=== PATIENT | male | born 1950 | race Caucasian/White ===

== ENCOUNTER 2017-10-21 14:13 | Inpatient (IN) ==
[2017-10-21] MEDS ORDERED: Sodium Chlor 0.9% Inj 500 ML IV.SIG ONE ×2 (17:32→19:26)
[2017-10-21] MEDS ORDERED: Methocarbamol Inj 1,000 MG in Dextrose 5% in Water Inj 240 ML IV.SIG ONE ×2 (17:32)
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
[2017-10-21 19:17] LABS: Calcium 9.2 mg/dL (8.5-10.1); Magnesium 2.2 mg/dL (1.5-2.5); Potassium 4.1 meq/L (3.5-5.1)
[2017-10-21] MEDS ORDERED: Ketorolac Inj 30 MG/ML (IVP) Vial IV.PUSH ONE (19:26)
[2017-10-21] MEDS ORDERED: Famotidine PF Inj 20 MG/2 ML Vial IV.PUSH ONE (21:49)
[2017-10-21] MEDS ORDERED: MethylPREDNISolone Sod Succinate Inj 125 MG/2 ML Vial IV.PUSH ONE (21:49)
[2017-10-21 22:19] LABS: Baso # (Auto) 0.1 th/mm3 (0.0-0.2); Baso % (Auto) 0.6 % (0.0-2.0); Eos # (Auto) 0.1 th/mm3 (0.0-0.4); Eos % (Auto) 0.7 % (0.0-4.0); Hematocrit 38.8 % (39.0-51.0); Hemoglobin 13.3 gm/dL (13.0-17.0); Lymph # (Auto) 3.3 th/mm3 (1.0-4.8); Lymph % (Auto) 17.3 % (9.0-44.0); Mean Corpuscular HGB Conc 34.4 % (32.0-36.0); Mean Corpuscular Hemoglobin 32.1 pg (27.0-34.0); Mean Corpuscular Volume 93.4 fL (80.0-100.0); Mean Platelet Volume 8.1 fL (7.0-11.0); Mono # (Auto) 2.1 th/mm3 (0.0-0.9); Mono % (Auto) 10.7 % (0.0-8.0); Neut # (Auto) 13.7 th/mm3 (1.8-7.7); Neut % (Auto) 70.7 % (16.0-70.0); Platelet Count 415 th/mm3 (150-450); Red Blood Count 4.15 mil/mm3 (4.50-5.90); Red Cell Distribution Width 12.8 % (11.6-17.2); White Blood Count 19.4 th/mm3 (4.0-11.0)
[2017-10-21 22:25] LABS: Bacteria,Urine Moderate /hpf; Bilirubin,Urine Negative (Negative); Clarity,Urine Hazy (Clear); Color,Urine Yellow (Yellw/Straw); Glucose,Urine (UA) Negative (Negative); Hyaline Casts,Urine 9 /lpf (0-3); Leukocyte Esterase,Urine Negative (Negative); Mucus,Urine Few /lpf (Occasional); Nitrite,Urine Negative (Negative); Squamous Epithelial Cell,Urine 1 /hpf (0-5)
[2017-10-21] MEDS ORDERED: Aluminum/Magnesium/Simethacone Susp 30 ML UDC PO ONE (22:49)
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
[2017-10-22] MEDS ORDERED: Iohexol 300 MG/ML 50 ML Vial (for Rad Diag) IT ONE (00:47)
[2017-10-22] MEDS ORDERED: Temazepam 15 MG Capsule PO PRN (01:44)
[2017-10-22] MEDS ORDERED: Acetaminophen 325 MG Tablet PO PRN (01:44)
[2017-10-22] MEDS ORDERED: Bisacodyl 10 MG Supp RECTAL PRN (01:44)
[2017-10-22] MEDS: Sod Chloride 0.9% Inj 1,000 ML IV.CONT SCH ×2 (02:20→15:01)
--- NOTE | 2017-10-22 05:04 | P.HP ---
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 The patient is here with his advocate who states she has been in contact with Dr. Crump from rehab medicine who will see him in consultation upon admission. The patient saw his pain management doctor on Saturday where he was given a steroid injection and a Toradol shot. He states that this helped until Saturday when his spasticity and pain returned. He took baclofen at home and broke out in a rash of hives. He has a leukocytosis and UA concerning for urinary tract infection. He has an indwelling Al catheter. He denies any chest pain or shortness of breath. No abdominal pain. He is concerned about constipation. No nausea/vomiting/ diarrhea. No fever/chills. Review of Systems All other systems reviewed negative except as stated in HPI [facility] - History History Provided By: Patient - Medical History Medical History: Medical History (Last Updated 10/22/17 @ 03:30 by Genesis Kern RN) Abnormal stools Back pain Dislocation of t9/t10 thoracic vertebra, initial encounter GBS (Guillain [place] syndrome) HTN (hypertension) Knee cartilage, torn, right Scoliosis Sinus abscess - Surgical History Surgical History: Surgical History (Last Updated 10/22/17 @ 03:30 by Genesis Kern RN) H/O shoulder surgery History of lung surgery History of penile implant Hx of laminectomy - Tobacco History Second Hand Smoke Exposure: No Smoking Status: Former smoker Tobacco Type: Cigarettes - Alcohol History How Often Do You Have a Drink Containing Alcohol: Never - Substance Use History Substance History: Active Abuse, Past History - Substance Use Type Marijuana Status: Active Route Used: Inhalation Frequency: 1-2 "hits", nightly Reason for Use: Calm Down - Travel History Recent Travel in the [place] Within the Last 8 Weeks: No Recent Travel Out of the Country Within the Last 8 Weeks: No - Immunization History Tetanus Immunization: Unsure Hx Influenza Vaccine This Season: No Medications and Allergies Active Medications: Active Medications Acetaminophen (Tylenol) 650 mg PO Q4H PRN PRN Reason: Temp > 100.4 Hydrocodone Bitart/Acetaminophen ([place] 10/325) 1 tab PO Q6H PRN PRN Reason: Chronic Pain Last Admin: 10/22/17 03:44 Dose: 1 tab Al Hydroxide/Mg Hydroxide (Milk Of Magnesia Liq) 30 ml PO Q12H PRN PRN Reason: Mild Constipation Bisacodyl (Dulcolax Supp) 10 mg RECTAL DAILY PRN PRN Reason: SEVERE CONSITIPATION Cyclobenzaprine HCl (Flexeril) 10 mg PO Q8H PRN PRN Reason: muscle spasm Heparin Sodium (Porcine) (Heparin Inj) 5,000 units SQ Q8H [facility] Ceftriaxone Sodium 1,000 mg/ (Sodium Chloride) 100 mls @ 200 mls/hr IV.SIG Q24H [facility] Sodium Chloride (Ns Inj) 1,000 mls @ 100 mls/hr IV.CONT .Q10H [facility] Last Admin: 10/22/17 02:20 Dose: 100 mls/hr Lactulose (Lactulose Liq) 30 ml PO DAILY PRN PRN Reason: SEVERE CONSITIPATION Levothyroxine Sodium (Synthroid) 88 mcg PO DAILY@0600 [facility] Ondansetron HCl (Zofran Odt) 4 mg PO Q6H PRN PRN Reason: NAUSEA OR VOMITING Valsartan- Hydrochlorothiazide [Diovan Hct] 160/12. 5 1 each PO DAILY [facility] Senna/Docusate Sodium (Libertad-Colace) 1 tab PO BID [facility] Sennosides (Senokot) 17.2 mg PO Q12H PRN PRN Reason: Moderate Constipation Sodium Chloride (Ns Flush) 2 ml IV.FLUSH PRN PRN PRN Reason: FLUSH AFTER USING IV ACCESS Temazepam (Restoril) 15 mg PO HS PRN PRN Reason: INSOMNIA Trazodone HCl (Desyrel) 200 mg PO HS [facility] Allergies Allergy/AdvReac Type Severity Reaction Status Date / Time sulfamethoxazole Allergy Hives Verified 10/21/17 17:32 [From Bactrim] trimethoprim [From Bactrim] Allergy Hives Verified 10/21/17 17:32 Home Medications Medication Instructions Recorded Confirmed Type ascorbic acid (vitamin C) [Vitamin 1 g PO Q6H 10/22/17 10/22/17 History C] calcium carbonate [Calcium 600] 600 mg PO BID 10/22/17 10/22/17 History cholecalciferol (vitamin D3) 2,000 unit PO DAILY 10/22/17 10/22/17 History [Vitamin D3] hydrocodone-acetaminophen 1 tab PO Q6H PRN 10/22/17 10/22/17 History levothyroxine 88 mcg PO DAILY 10/22/17 10/22/17 History linaclotide [Linzess] 290 mcg PO DAILY 10/22/17 10/22/17 History methenamine hippurate 1 g PO Q12H 10/22/17 10/22/17 History polyethylene glycol 3350 17 g PO BID 10/22/17 10/22/17 History trazodone 200 mg PO DAILY 10/22/17 10/22/17 History valsartan-hydrochlorothiazide 1 tab PO DAILY 10/22/17 10/22/17 History [Diovan HCT] Exam Vital signs: Vital Signs 10/21/17 14:25 10/21/17 16:22 10/21/17 23:11 Temperature 98 F Pulse Rate 97 H Respiratory Rate 17 8 L Blood Pressure 183/98 H 166/101 H Pulse Oximetry 97 Intake & Output 10/21/17 10/21/17 10/22/17 06:59 18:59 06:59 Weight 90.718 kg Narrative: Gen.: No acute distress Head: Normocephalic. Atraumatic. EENT: Pupils equal round and reactive to light. Nose without drainage. Airway intact. Throat without injection. Cardiovascular: Regular rate and rhythm. No murmurs, rubs or gallops. Respiratory: Lungs clear to auscultation bilaterally. No wheezes or rhonchi. Abdomen: Soft, nontender, nondistended. No peritoneal signs. Musculoskeletal: No edema. Skin: No obvious rashes or erythema. Neuro: Cranial nerves II through XII grossly intact. Normal speech Psych: Appropriate mood and affect Results - Labs CBC & Chem 7: 10/21/17 22:00 10/21/17 18:04 Labs: Laboratory Results - last 24 hr 10/21/17 10/21/17 10/21/17 18:04 21:45 22:00 WBC 19.4 H RBC 4.15 L Hgb 13.3 Hct 38.8 L MCV 93.4 MCH 32.1 MCHC 34.4 RDW 12.8 Plt Count 415 MPV 8.1 Neut % (Auto) 70.7 H Lymph % (Auto) 17.3 [place] % (Auto) 10.7 H Eos % (Auto) 0.7 Baso % (Auto) 0.6 Neut # (Auto) 13.7 H Lymph # (Auto) 3.3 [place] # (Auto) 2.1 H Eos # (Auto) 0.1 Baso # (Auto) 0.1 WBC Differential . Differential Comment Auto diff final Sodium 130 L Potassium 4.1 Chloride 95 L Carbon Dioxide 25.0 Anion Gap 10 BUN 12 Creatinine 1.08 Estimated GFR 68 L Random Glucose 98 Calcium 9.2 Magnesium 2.2 Urine Color Yellow Urine Clarity Hazy H Urine pH 8.0 Ur Specific [place] 1.010 Urine Protein Negative Urine Glucose (UA) Negative Urine Ketones Trace Urine Occult Blood Negative Urine Nitrate Negative Urine Bilirubin Negative Urine Urobilinogen Less than 2 Ur Leukocyte Esterase Negative Urine RBC Less than 1 Urine WBC 1 Ur Squamous Epith Cells 1 Urine Bacteria Moderate H Hyaline Casts 9 Urine Mucus Few H Micro UA Comment Cath-culture ind Urine Culture Comments Cath-cult indicated - Imaging Impressions Abdomen X-Ray 10/21/17 21:49 CONCLUSION: 1. Minimal air distention of small and large bowel in a nonobstructive pattern. No findings of stool retention/constipation. 2. S-shaped scoliosis of the thoracolumbar spine. 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 Caprini VTE Risk Assessment Caprini VTE Risk Assessment: Moderate/High Risk (score >= 2) Caprini Risk Assessment Model: Point Value = 1 Point Value = 2 Point Value = 3 Point Value = 5 Age 41-60 Minor surgery BMI > 25 kg/m2 Swollen legs Varicose veins or History of unexplained or recurrent spontaneous Oral contraceptives or hormone replacement Sepsis (< 1 month) Serious lung disease, including pneumonia (< 1 month) Abnormal pulmonary function Acute myocardial infarction Congestive heart failure (< 1 month) History of inflammatory bowel disease Medical patient at bed rest Age 61-74 Arthroscopic surgery Major open surgery (> 45 min) Laparoscopic surgery (> 45 min) Malignancy Confined to bed (> 72 hours) Immobilizing plaster cast Central venous access Age >= 75 History of VTE Family history of VTE Factor V Leiden Prothrombin [id number] Lupus anticoagulant Anticardiolipin antibodies Elevated serum homocysteine Heparin-induced thrombocytopenia Other congenital or acquired thrombophilia Stroke (< 1 month) Elective arthroplasty Hip, pelvis, or leg fracture Acute spinal cord injury (< 1 month) Prophylaxis Regimen: Total Risk Factor Score Risk Level Prophylaxis Regimen 0-1 Low Early ambulation 2 Moderate Order ONE of the following: *Sequential Compression Device (SCD) *Heparin 5000 units SQ BID 3-4 Higher Order ONE of the following medications: *Heparin 5000 units SQ TID *Enoxaparin/Lovenox 40 mg SQ daily (WT < 150 kg, CrCl > 30 mL/min) *Enoxaparin/Lovenox 30 mg SQ daily (WT < 150 kg, CrCl > 10-29 mL/min) *Enoxaparin/Lovenox 30 mg SQ BID (WT < 150 kg, CrCl > 30 mL/min) AND/OR *Sequential Compression Device (SCD) 5 or more Highest Order ONE of the following medications: *Heparin 5000 units SQ TID (Preferred with Epidurals) *Enoxaparin/Lovenox 40 mg SQ daily (WT < 150 kg, CrCl > 30 mL/min) *Enoxaparin/Lovenox 30 mg SQ daily (WT < 150 kg, CrCl > 10-29 mL/min) *Enoxaparin/Lovenox 30 mg SQ BID (WT < 150 kg, CrCl > 30 mL/min) AND *Sequential Compression Device (SCD) Assessment and Plan - Plan Assessment/plan: 1. Urosepsis UA consistent with urinary tract infection Patient with tachycardia and leukocytosis May be colonized as he has an indwelling Al catheter and leukocytosis may be secondary to steroid injection on Saturday Urine culture pending Rocephin until culture results 2. Back pain/spasticity Continue home [place] Flexeril Status post Toradol in the ED Rehab medicine consulted, appreciate recommendations Physical therapy consulted 3. Hives Resolved with Benadryl and IV steroids Monitor 4. Hypertension Continue home medications 5. Hypothyroidism Continue home Synthroid FEN Regular diet Electrolytes: Monitor and replete as needed NS at 100 cc/hour Heparin
[2017-10-22] MEDS: Heparin - SQ 10,000 UNITS/ML Vial SQ SCH ×3 (06:14→17:56)
--- NOTE | 2017-10-22 08:56 | P.CONREH ---
History of Present Illness Primary Care Provider: No Primary Care Physician PMF - History History Provided By: Patient - Medical History Medical History: Medical History (Last Updated 10/22/17 @ 03:30 by Genesis Kern RN) Abnormal stools Back pain Dislocation of t9/t10 thoracic vertebra, initial encounter GBS (Guillain [place] syndrome) HTN (hypertension) Knee cartilage, torn, right Scoliosis Sinus abscess - Surgical History Surgical History: Surgical History (Last Updated 10/22/17 @ 03:30 by Genesis Kern RN) H/O shoulder surgery History of lung surgery History of penile implant Hx of laminectomy - Tobacco History Second Hand Smoke Exposure: No Smoking Status: Former smoker Tobacco Type: Cigarettes - Alcohol History How Often Do You Have a Drink Containing Alcohol: Never - Substance Use History Substance History: Active Abuse, Past History - Substance Use Type Marijuana Status: Active Route Used: Inhalation Frequency: 1-2 "hits", nightly Reason for Use: Calm Down - Travel History Recent Travel in the [place] Within the Last 8 Weeks: No Recent Travel Out of the Country Within the Last 8 Weeks: No - Immunization History Tetanus Immunization: Unsure Hx Influenza Vaccine This Season: No Medications and Allergies Active Medications: Active Medications Acetaminophen (Tylenol) 650 mg PO Q4H PRN PRN Reason: Temp > 100.4 Hydrocodone Bitart/Acetaminophen ([place] 10/325) 1 tab PO Q6H PRN PRN Reason: Chronic Pain Last Admin: 10/22/17 03:44 Dose: 1 tab Al Hydroxide/Mg Hydroxide (Milk Of Magnmaggie Liq) 30 ml PO Q12H PRN PRN Reason: Mild Constipation Bisacodyl (Dulcolax Supp) 10 mg RECTAL DAILY PRN PRN Reason: SEVERE CONSITIPATION Cyclobenzaprine HCl (Flexeril) 10 mg PO Q8H PRN PRN Reason: muscle spasm Heparin Sodium (Porcine) (Heparin Inj) 5,000 units SQ Q8H [facility] Last Admin: 10/22/17 06:14 Dose: Not Given Ceftriaxone Sodium 1,000 mg/ (Sodium Chloride) 100 mls @ 200 mls/hr IV.SIG Q24H [facility] Sodium Chloride (Ns Inj) 1,000 mls @ 100 mls/hr IV.CONT .Q10H [facility] Last Admin: 10/22/17 02:20 Dose: 100 mls/hr Lactulose (Lactulose Liq) 30 ml PO DAILY PRN PRN Reason: SEVERE CONSITIPATION Levothyroxine Sodium (Synthroid) 88 mcg PO DAILY@0600 [facility] Ondansetron HCl (Zofran Odt) 4 mg PO Q6H PRN PRN Reason: NAUSEA OR VOMITING Valsartan- Hydrochlorothiazide [Diovan Hct] 160/12. 5 1 each PO DAILY [facility] Senna/Docusate Sodium (Libertad-Colace) 1 tab PO BID [facility] Sennosides (Senokot) 17.2 mg PO Q12H PRN PRN Reason: Moderate Constipation Sodium Chloride (Ns Flush) 2 ml IV.FLUSH PRN PRN PRN Reason: FLUSH AFTER USING IV ACCESS Temazepam (Restoril) 15 mg PO HS PRN PRN Reason: INSOMNIA Trazodone HCl (Desyrel) 200 mg PO HS [facility] Allergies Allergy/AdvReac Type Severity Reaction Status Date / Time sulfamethoxazole Allergy Hives Verified 10/21/17 17:32 [From Bactrim] trimethoprim [From Bactrim] Allergy Hives Verified 10/21/17 17:32 Home Medications Medication Instructions Recorded Confirmed Type ascorbic acid (vitamin C) [Vitamin 1 g PO Q6H 10/22/17 10/22/17 History C] calcium carbonate [Calcium 600] 600 mg PO BID 10/22/17 10/22/17 History cholecalciferol (vitamin D3) 2,000 unit PO DAILY 10/22/17 10/22/17 History [Vitamin D3] hydrocodone-acetaminophen 1 tab PO Q6H PRN 10/22/17 10/22/17 History levothyroxine 88 mcg PO DAILY 10/22/17 10/22/17 History linaclotide [Linzess] 290 mcg PO DAILY 10/22/17 10/22/17 History methenamine hippurate 1 g PO Q12H 10/22/17 10/22/17 History polyethylene glycol 3350 17 g PO BID 10/22/17 10/22/17 History trazodone 200 mg PO DAILY 10/22/17 10/22/17 History valsartan-hydrochlorothiazide 1 tab PO DAILY 10/22/17 10/22/17 History [Diovan HCT] Exam - Physical Examination Vital Signs / I&O: Vital Signs 10/21/17 14:25 10/21/17 16:22 10/21/17 23:11 Temperature 98 F Pulse Rate 97 H Respiratory Rate 17 8 L Blood Pressure 183/98 H 166/101 H Pulse Oximetry 97 10/22/17 04:00 Temperature 98.7 F Pulse Rate 72 Respiratory Rate 17 Blood Pressure 166/75 H Pulse Oximetry 94 L Intake & Output 10/21/17 10/22/17 10/22/17 18:59 06:59 18:59 Output Total 750 / 750 Balance -750 / -750 Weight 200 lb Output: Urine 750 / 750 Other: Date of Last Bowel Movement 10/22/17 # Bowel Movements 1 Intake & Output 10/20/17 10/21/17 10/22/17 10/23/17 06:59 06:59 06:59 06:59 Output Total 750 / 750 Balance -750 / -750 Weight 200 lb Date of Last Bowel Movement: 10/22/17 Results - Labs CBC & Chem 7: 10/21/17 22:00 10/21/17 18:04 Labs: Laboratory Results - last 24 hr 10/21/17 10/21/17 10/21/17 18:04 21:45 22:00 WBC 19.4 H RBC 4.15 L Hgb 13.3 Hct 38.8 L MCV 93.4 MCH 32.1 MCHC 34.4 RDW 12.8 Plt Count 415 MPV 8.1 Neut % (Auto) 70.7 H Lymph % (Auto) 17.3 [place] % (Auto) 10.7 H Eos % (Auto) 0.7 Baso % (Auto) 0.6 Neut # (Auto) 13.7 H Lymph # (Auto) 3.3 [place] # (Auto) 2.1 H Eos # (Auto) 0.1 Baso # (Auto) 0.1 WBC Differential . Differential Comment Auto diff final Sodium 130 L Potassium 4.1 Chloride 95 L Carbon Dioxide 25.0 Anion Gap 10 BUN 12 Creatinine 1.08 Estimated GFR 68 L Random Glucose 98 Calcium 9.2 Magnesium 2.2 Urine Color Yellow Urine Clarity Hazy H Urine pH 8.0 Ur Specific [place] 1.010 Urine Protein Negative Urine Glucose (UA) Negative Urine Ketones Trace Urine Occult Blood Negative Urine Nitrate Negative Urine Bilirubin Negative Urine Urobilinogen Less than 2 Ur Leukocyte Esterase Negative Urine RBC Less than 1 Urine WBC 1 Ur Squamous Epith Cells 1 Urine Bacteria Moderate H Hyaline Casts 9 Urine Mucus Few H Micro UA Comment Cath-culture ind Urine Culture Comments Cath-cult indicated - Imaging Impressions Abdomen X-Ray 10/21/17 21:49 CONCLUSION: 1. Minimal air distention of small and large bowel in a nonobstructive pattern. No findings of stool retention/constipation. 2. S-shaped scoliosis of the thoracolumbar spine. 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 Assessment and Plan (1) Paraplegia Status: Acute Code(s): G82.20 - Paraplegia, unspecified (2) Spinal cord injury Status: Acute (3) Muscle spasm Status: Acute Code(s): M62.838 - Other muscle spasm (4) Hyponatremia Status: Acute Code(s): E87.1 - Hypo-osmolality and hyponatremia (5) SIRS (systemic inflammatory response syndrome) Status: Acute Code(s): R65.10 - Systemic inflammatory response syndrome (SIRS ) of non-infectious origin without acute organ dysfunction - Plan Mr. Street is a long time spinal cord injury with chronic back pain following with pain management presenting with worsening back pain and spams in the legs. 1. Will order a CT scan of the L spine since no imaging has been done in a few years and his pain is significant. Agree with hydrocodone for pain. Oxycodone x 1 to help with pain. 2. Agree with antibiotics for possible urosepsis. Leukocytosis could be from recent steroids vs infection 3. Spasticity - he has tried baclofen and valium in the past with no improvement. Will trial zanaflex. Will give one dose of valium to see if able to do the CT scan of the L spine, spasm are a barrier. 4. Continue with bowel and bladder program. 5. High BP - unsure if this is autonomic disreflexia due to hx of sweating and pain vs HTN at baseline or due to pain. Thanks for the consultation, will continue to follow while in the hospital.
[2017-10-22] MEDS ORDERED: VALSARTAN HYDROCHLOROTHIAZIDE PO SCH (09:00)
--- NOTE | 2017-10-22 09:32 | P.PN ---
Subjective Interval history: Follow up for back pain and spasticity. The patient reports continued diffuse low back pain with spasms into his bilateral hips, unchanged compared to yesterday. He denies any fevers/chills. He uses a condom catheter, reports good urine output. He has no other medical complaints at this time. Physical Exam Vital signs: Vital Signs 10/21/17 14:25 10/21/17 16:22 10/21/17 23:11 Temperature 98 F Pulse Rate 97 H Respiratory Rate 17 8 L Blood Pressure 183/98 H 166/101 H Pulse Oximetry 97 10/22/17 04:00 10/22/17 08:00 Temperature 98.7 F 97.6 F Pulse Rate 72 83 Respiratory Rate 17 16 Blood Pressure 166/75 H 173/84 H Pulse Oximetry 94 L 97 Intake & Output 10/21/17 10/22/17 10/22/17 18:59 06:59 18:59 Output Total 750 / 750 Balance -750 / -750 Weight 90.718 kg Output: Urine 750 / 750 Other: Date of Last Bowel Movement 10/22/17 10/22/17 # Bowel Movements 1 Narrative: GENERAL: Well-nourished, well-developed male patient in [facility]. SKIN: Warm and dry. No rash. HEENT: Normocephalic. Atraumatic. Pupils equal and round. Mucous membranes pink and moist. CARDIOVASCULAR: Regular rate and rhythm. No murmur appreciated. RESPIRATORY: No accessory muscle use. Clear to auscultation. Breath sounds equal bilaterally. GASTROINTESTINAL: Abdomen soft, non-tender, nondistended. Normoactive bowel sounds x4. MUSCULOSKELETAL: No obvious deformities. Extremities without clubbing, cyanosis , or edema. NEUROLOGICAL: Awake and alert. 2/5 lower extremity strength. Normal speech. PSYCHIATRIC: Appropriate mood and affect; insight and judgment normal. Results - Labs CBC & Chem 7: 10/21/17 22:00 10/21/17 18:04 Laboratory Results - last 24 hr 10/21/17 10/21/17 10/21/17 18:04 21:45 22:00 WBC 19.4 H RBC 4.15 L Hgb 13.3 Hct 38.8 L MCV 93.4 MCH 32.1 MCHC 34.4 RDW 12.8 Plt Count 415 MPV 8.1 Neut % (Auto) 70.7 H Lymph % (Auto) 17.3 [place] % (Auto) 10.7 H Eos % (Auto) 0.7 Baso % (Auto) 0.6 Neut # (Auto) 13.7 H Lymph # (Auto) 3.3 [place] # (Auto) 2.1 H Eos # (Auto) 0.1 Baso # (Auto) 0.1 WBC Differential . Differential Comment Auto diff final Sodium 130 L Potassium 4.1 Chloride 95 L Carbon Dioxide 25.0 Anion Gap 10 BUN 12 Creatinine 1.08 Estimated GFR 68 L Random Glucose 98 Calcium 9.2 Magnesium 2.2 Urine Color Yellow Urine Clarity Hazy H Urine pH 8.0 Ur Specific [place] 1.010 Urine Protein Negative Urine Glucose (UA) Negative Urine Ketones Trace Urine Occult Blood Negative Urine Nitrate Negative Urine Bilirubin Negative Urine Urobilinogen Less than 2 Ur Leukocyte Esterase Negative Urine RBC Less than 1 Urine WBC 1 Ur Squamous Epith Cells 1 Urine Bacteria Moderate H Hyaline Casts 9 Urine Mucus Few H Micro UA Comment Cath-culture ind Urine Culture Comments Cath-cult indicated - Imaging Impressions Abdomen X-Ray 10/21/17 21:49 CONCLUSION: 1. Minimal air distention of small and large bowel in a nonobstructive pattern. No findings of stool retention/constipation. 2. S-shaped scoliosis of the thoracolumbar spine. 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 Sepsis with UTI: UA consistent with urinary tract infection, meets sepsis criteria with tachycardia HR 97, and leukocytosis WBC 19K (although recently received steroid injection last Wednesday 10/18). -Monitor urine culture -Continue on IV rocephin for now Back pain/spasticity: acute on chronic -Continued home [place] -Rehab medicine consulted, appreciate recommendations -Dr. Crump added zanaflex 4mg po q8h -Physical therapy consulted -Lumbar spine CT ordered Hives: after taking Baclofen -Resolved with Benadryl and IV steroids Hypertension: chronic -Continue patient's diovan -Monitor BP, adjust antihypertensives as needed Hypothyroidism: chronic -Continue home Synthroid DVT Prophylaxis: Heparin sq Discharge Planning: Discharge pending further clinical improvement, lumbar CT, clearance from rehab medicine.
[2017-10-22] MEDS ORDERED: diazePAM 5 MG Tablet PO ONE (13:48)
[2017-10-22] MEDS: Senna/Docusate Sodium 8.6/50 MG Tablet PO SCH ×2 (15:00→22:09)
[2017-10-22] MEDS: Levothyroxine 88 MCG Tablet PO SCH (19:10)
[2017-10-22] MEDS: traZODone 100 MG Tablet PO SCH (22:09)
[2017-10-23] MEDS: Sod Chloride 0.9% Inj 1,000 ML IV.CONT SCH ×4 (01:02→20:10)
[2017-10-23] MEDS: Heparin - SQ 10,000 UNITS/ML Vial SQ SCH ×3 (01:02→18:28)
--- NOTE | 2017-10-23 01:11 | CT ---
EXAM DATE: 10/23/2017 12:59 AM EDT AGE/SEX: 67 years / Male INDICATIONS: Increased back pain and spasms. CLINICAL DATA: This is the patient's initial encounter. Patient reports that signs and symptoms have been present for 1 day and indicates a pain score of 8/10. MEDICAL/SURGICAL HISTORY: Hypertension. Paraplegia. . Laminectomy. RADIATION DOSE: 33.34 CTDI (mGy) COMPARISON: DEL, CT ABDOMEN AND PELVIS W AND W/O CONTRAST, 08/31/2014. . TECHNIQUE: Contiguous axial images were acquired with a multirow detector CT scanner without contras t. Multiplanar reconstructions in the sagittal and coronal plane were also performed. Using automate d exposure control and adjustment of the mA and/or kV according to patient size, radiation dose was k ept as low as reasonably achievable to obtain optimal diagnostic quality images. DICOM format image data is available electronically for review and comparison. FINDINGS: Sagittal and coronal reconstruction show a significant levoscoliosis of the lumbar spine with associa jossy degenerative changes. Vacuum disc phenomenon at L4-5. Marginal spurs from L1 to inferiorly, most severe at L3-4 and L4-5. Vertebral body heights are maintained without fracture. Urinary bladder appe ars to be distended with possibly some retention. T12-L1: Motion artifact. Spinal canal and neural foramina are grossly patent L1-L2: Motion artifact. Spinal canal and neural foramina are grossly patent L2-L3: Mild, diffuse disc bulge with some facet hypertrophy results in mild central spinal stenosis. Both neural foramina are adequate L3-L4: Diffuse disc bulge with facet hypertrophy. Mild spinal stenosis. Spinal canal and neural fora tressa are adequate L4-L5: Broad-based disc bulges most prominent right posterior and lateral. Bilateral facet hypertrop hy There is narrowing of the right neural foramina with probable compromise of the right L4 nerve aj t L5-S1: Vacuum disc phenomenon with facet hypertrophy. Some encroachment on the spinal canal but the spinal canal and neural foramina are adequate CONCLUSION: 1. Levoscoliosis of the lumbar spine with associated multilevel degenerative disc disease. 2. Some degree of central spinal stenosis from L2-3, L3-4 and L5-S1 due to diffuse disc bulge and fa cet hypertrophy. 3. Foraminal narrowing rightward at L4-5 due to a combination of disc and facet hypertrophy may comp romise the right L4 nerve root. 4. No acute fracture. Electronically signed by: Manny Szymanski MD 10/23/2017 1:09 AM EDT
[2017-10-23] MEDS: Levothyroxine 88 MCG Tablet PO SCH (05:58)
[2017-10-23 08:50] LABS: Baso # (Auto) 0.1 th/mm3 (0.0-0.2); Baso % (Auto) 0.9 % (0.0-2.0); Eos # (Auto) 0.1 th/mm3 (0.0-0.4); Hematocrit 28.9 % (39.0-51.0); Lymph # (Auto) 2.6 th/mm3 (1.0-4.8); Lymph % (Auto) 39.8 % (9.0-44.0); Mean Corpuscular HGB Conc 34.6 % (32.0-36.0); Mean Corpuscular Volume 95.2 fL (80.0-100.0); Mean Platelet Volume 8.1 fL (7.0-11.0); Mono # (Auto) 0.8 th/mm3 (0.0-0.9); Mono % (Auto) 11.9 % (0.0-8.0); Neut % (Auto) 45.4 % (16.0-70.0); Platelet Count 294 th/mm3 (150-450); Red Blood Count 3.04 mil/mm3 (4.50-5.90); Red Cell Distribution Width 12.9 % (11.6-17.2); White Blood Count 6.7 th/mm3 (4.0-11.0)
[2017-10-23 09:18] LABS: Anion Gap 7 meq/L (5-15); Blood Urea Nitrogen 16 mg/dL (7-18); Calcium 7.7 mg/dL (8.5-10.1); Carbon Dioxide 25.3 meq/L (21.0-32.0); Chloride 108 meq/L (98-107); Glomerular Filtration Rate Greater Than 89 mL/min (>89); Glucose,Random 89 mg/dL (74-106); Potassium 3.8 meq/L (3.5-5.1); Sodium 140 meq/L (136-145)
[2017-10-23] MEDS: Senna/Docusate Sodium 8.6/50 MG Tablet PO SCH ×2 (10:18→20:07)
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
[2017-10-23] MEDS ORDERED: predniSONE 20 MG Tablet PO ONE (12:45)
[2017-10-23] MEDS: Famotidine 20 MG Tablet PO SCH ×2 (13:31→20:08)
[2017-10-23] MEDS: traZODone 100 MG Tablet PO SCH (20:07)
[2017-10-24] MEDS: Heparin - SQ 10,000 UNITS/ML Vial SQ SCH ×2 (00:01→08:28)
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
[2017-10-24] MEDS: Sod Chloride 0.9% Inj 1,000 ML IV.CONT SCH ×2 (06:11→16:34)
[2017-10-24] MEDS: Levothyroxine 88 MCG Tablet PO SCH (06:12)
[2017-10-24] MEDS: Famotidine 20 MG Tablet PO SCH ×2 (08:28→20:41)
[2017-10-24] MEDS: Senna/Docusate Sodium 8.6/50 MG Tablet PO SCH ×2 (08:28→20:41)
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
--- NOTE | 2017-10-24 16:55 | P.PNNS ---
Subjective Interval history: 10/24: reports this morning was doing well, pain and cramps improved. later today however when he was on the commode aggravated his back somehow and has pain and leg spasms returned. <Yeny Boykin - Last Filed: 10/24/17 16:49> Physical Exam Vital signs: Vital Signs 10/23/17 23:33 10/24/17 04:00 10/24/17 08:00 Temperature 97.9 F 97.6 F 97.7 F Pulse Rate 63 60 57 L Respiratory Rate 16 16 16 Blood Pressure 140/69 165/70 H 162/77 H Pulse Oximetry 96 94 L 98 10/24/17 12:00 10/24/17 15:44 Temperature 97.7 F Pulse Rate 67 Respiratory Rate 18 Blood Pressure 186/87 H 145/89 H Pulse Oximetry 98 Intake & Output 10/23/17 10/24/17 10/24/17 18:59 06:59 18:59 Intake Total 2250 / 2250 3000 / 3000 1000 / 1000 Output Total 1700 / 1700 3200 / 3200 Balance 550 / 550 -200 / -200 1000 / 1000 Intake: IV 2250 / 2250 2000 / 2000 1000 / 1000 NS Inj 1,000 ML @ 100 mls/hr IV 1000 / 1000 2000 / 2000 1000 / 1000 .CONT .Q10H [facility] Rx#:[id number] Oral 1000 / 1000 Output: Urine 1700 / 1700 3200 / 3200 Other: Date of Last Bowel Movement 10/23/17 10/23/17 10/24/17 # Bowel Movements 1 2 Narrative: General: Well nourished. Appears mildly uncomfortable due to spams in legs during examination. HEENT: Normocephalic, atraumatic. Normal conjunctiva. No nasal drainage. Gross hearing intact bilaterally. No ear drainage. Neck: No masses, no JVD. Trachea midline. Good range of motion without pain Neuro: Awake, alert and oriented to person, place, and time. Speech is clear and fluent. Can follow single and multi-step commands without apraxia. Cranial nerve examination: pupils to be equal, round, and reactive to light. Extra-ocular movements are intact with normal convergence. Facial motor function are normal and symmetrical. Gross hearing is intact, bilaterally, to finger rub. The uvula is midline and elevates symmetrically with the soft palate. Sternocleidomastoid and deltoid muscles have normal and symmetrical strength. Other cranial nerves are intact. Deep tendon reflexes are 1+ patellar. Bilateral Babinski response. Extremities: Mild increased tone with positive fasciculation of thigh. Atrophy of legs and right hand interosseous muscles. 4/5 right upper extremity. 5/5 left upper extremity. In the lower extremities, strength is 4/ 5 legs. Moderate thoracic kyphosis. Cerebellar: Intact finger to nose bilaterally Lungs: Nonlabored breathing on room air, no wheezing,rhonchi or crackles. No accessory muscle use. Heart: Regular rate and rhythm Abdomen: Soft, nontender. Positive bowel sounds Skin: Warm and dry, no cyanosis. Diffuse wheal and hives throughout. <Yeny Boykin - Last Filed: 10/24/17 16:49> Vital signs: Vital Signs 10/27/17 20:00 10/27/17 23:23 10/28/17 04:00 Temperature 97.6 F 98.8 F 98.0 F Pulse Rate 70 63 64 Respiratory Rate 16 16 15 Blood Pressure 133/60 155/71 H 132/68 Pulse Oximetry 94 L 96 97 10/28/17 11:58 10/28/17 15:44 Temperature 97.7 F 97.8 F Pulse Rate 67 60 Respiratory Rate 16 16 Blood Pressure 132/66 167/77 H Pulse Oximetry 98 99 Intake & Output 10/27/17 10/28/17 10/28/17 18:59 06:59 18:59 Intake Total 1000 / 1000 Output Total 1999 Balance -1999 / -1999 1000 / 1000 Intake: IV 1000 / 1000 Output: Urine 1999 Other: Date of Last Bowel Movement 10/26/17 10/26/17 Narrative: General: Mr Street is well nourished. No apparent distress, laying flat in bed. HEENT: Normocephalic, atraumatic. Normal conjunctiva. No nasal drainage. Gross hearing intact bilaterally. No ear drainage. Neck: No masses, no JVD. Trachea midline. Good range of motion without pain Neuro: Awake, alert and oriented to person, place, and time. Speech is clear and fluent. Can follow single and multi-step commands without apraxia. Cranial nerve examination: pupils equal, round, and reactive to light. Extra- ocular movements are intact with normal convergence. Facial motor function are normal and symmetrical. Other cranial nerves are intact. Deep tendon reflexes are 1+ patellar. Bilateral Babinski response. Extremities: Mild increased tone with positive fasciculation of thigh. Atrophy of legs and right hand interosseous muscles. 4/5 right upper extremity. 5/5 left upper extremity. In the lower extremities, strength is 4/ 5 legs. Moderate thoracic kyphosis. Lungs: Nonlabored breathing on room air, no wheezing,rhonchi or crackles. No accessory muscle use. Heart: Regular rate and rhythm Abdomen: Soft, nontender. Positive bowel sounds Skin: Warm and dry, no cyanosis. <Hector Mir - Last Filed: 10/28/17 17:56> Assessment and Plan - Plan CT Thoracic spine unremarkable Dr. Mir recommends CT Myelogram C, T, L spine hold heparin increase Flexeril to q6hrs as it has helped <Yeny Boykin - Last Filed: 10/24/17 16:49> - Plan Neuro: Continue neuro checks. I recommend myelography and post myelogram CT of cervical, thoracic, and lumbar spine. I will defer further recommendations to upon completion of his workup Spasticity - he has tried baclofen and valium in the past with no improvement. Will trial zanaflex. Trial of valium Continue with bowel and bladder program. 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 Daily PT and OT Renal: Continue to monitor closely urine output, BUN and creatinine Endocrine: Continue to Monitor serial Acu checks and SSI as needed in detail ID antibiotics for possible urosepsis. Leukocytosis could be from recent steroids vs infection Continue Protonix for stress ulcer prophylaxis Continue Jelani hose and SCD's for DVT prophylaxis Further recommendations will be provided depending on the patient's clinical evaluation and follow up studies. The exam, history, and the medical decision-making described in the above note were completed with the assistance of the mid-level provider. I reviewed and agree with the findings presented. I attest that I had a [id number] encounter with the patient on the same day, and personally performed and documented my assessment and findings in the medical record. <Hector Mir - Last Filed: 10/28/17 17:56>
[2017-10-24] MEDS: traZODone 100 MG Tablet PO SCH (20:41)
[2017-10-25] MEDS: Sod Chloride 0.9% Inj 1,000 ML IV.CONT SCH ×2 (02:35→14:55)
[2017-10-25] MEDS: Levothyroxine 88 MCG Tablet PO SCH (06:05)
[2017-10-25 08:00] LABS: Prothrombin Time 10.3 sec (9.8-11.6)
[2017-10-25] MEDS: Famotidine 20 MG Tablet PO SCH ×2 (08:37→20:53)
[2017-10-25] MEDS: Senna/Docusate Sodium 8.6/50 MG Tablet PO SCH ×2 (08:37→20:55)
[2017-10-25] MEDS ORDERED: hydroCHLOROthiazide 25 MG Tablet PO SCH (14:00)
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
[2017-10-25] MEDS ORDERED: Methenamine Mandelate 500 MG Tablet PO SCH (14:30)
[2017-10-25] MEDS: Ascorbic Acid 500 MG Tablet PO SCH (15:40)
[2017-10-25] MEDS: Calcium Carbonate 500 MG Tablet PO SCH (15:42)
[2017-10-25] MEDS: Polyethylene Glycol 3350 17 GM Packet PO SCH (15:47)
--- NOTE | 2017-10-25 17:01 | P.PNREH ---
Subjective Interval history: Patient evaluated today, continues with significant pain and spasm. Review of Systems Constitutional: Denies fatigue Eyes: Denies blurry vision Ears, Nose, Mouth, and Throat: Denies abnormal hearing Cardiovascular: Denies chest pain Respiratory: Denies cough Gastrointestinal: Denies abdominal pain Genitourinary: Reports other (neurogenic bladder) Musculoskeletal: Reports abnormal walking, Reports back pain, Reports decreased muscle mass, Reports muscle weakness, Reports numbness, Reports stiffness Neurologic: Reports abnormal walking, Reports tingling/numbness/burning sensations Exam - Physical Examination Vital Signs / I&O: Vital Signs 10/24/17 20:00 10/24/17 23:38 10/25/17 04:00 Temperature 97.6 F 98.0 F 97.9 F Pulse Rate 71 68 57 L Respiratory Rate 16 17 16 Blood Pressure 162/74 H 139/66 174/88 H Pulse Oximetry 98 96 97 10/25/17 09:10 Temperature 98.2 F Pulse Rate 70 Respiratory Rate 20 Blood Pressure 160/80 H Pulse Oximetry Intake & Output 10/24/17 10/25/17 10/25/17 18:59 06:59 18:59 Intake Total 1000 / 1000 1000 / 1000 1500 / 1500 Balance 1000 / 1000 1000 / 1000 1500 / 1500 Intake: IV 1000 / 1000 1000 / 1000 1000 / 1000 NS Inj 1,000 ML @ 100 mls/hr IV 1000 / 1000 1000 / 1000 1000 / 1000 .CONT .Q10H [facility] Rx#:[id number] Oral 500 / 500 Other: Date of Last Bowel Movement 10/24/17 10/23/17 Intake & Output 10/23/17 10/24/17 10/25/17 10/26/17 06:59 06:59 06:59 06:59 Intake Total 4650 / 4650 5250 / 5250 2000 / 2000 1500 / 1500 Output Total 3250 / 3250 4900 / 4900 Balance 1400 / 1400 350 / 350 2000 / 2000 1500 / 1500 General: Moderate distress (due to pain) HEENT: NC, AT Respiratory: Lungs CTA, Non-labored respirations Gastrointestinal: Positive bowel sounds, Non-distended Date of Last Bowel Movement: 10/23/17 Cardiovascular: Normal rate Skin: No rash Musculoskeletal: Swelling (None noted) Psychiatric: Cooperative - Neurologic Orientation: oriented to: Self, Place, Time Motor: Right Upper Extremity (5/5), Left Upper Extremity (5/5) Spasticity: BLE significant Objective Laboratory Results - last 24 hr 10/25/17 06:57 PT 10.3 INR 1.0 Microbiology 10/21/17 23:30 Aerobic Blood Culture - Preliminary Blood - Peripheral No growth in 4 days Anaerobic Blood Culture - Preliminary No growth in 4 days 10/21/17 23:36 Aerobic Blood Culture - Preliminary Blood - Peripheral No growth in 4 days Anaerobic Blood Culture - Preliminary No growth in 4 days Assessment and Plan (1) Paraplegia Status: Acute Code(s): G82.20 - Paraplegia, unspecified (2) Spinal cord injury Status: Acute (3) Muscle spasm Status: Acute Code(s): M62.838 - Other muscle spasm (4) Hyponatremia Status: Acute Code(s): E87.1 - Hypo-osmolality and hyponatremia (5) SIRS (systemic inflammatory response syndrome) Status: Acute Code(s): R65.10 - Systemic inflammatory response syndrome (SIRS ) of non-infectious origin without acute organ dysfunction - Plan Mr. Street is a long time spinal cord injury with chronic back pain following with pain management presenting with worsening back pain and spams in the legs. 1. Will do a trial with fentanyl patch to help with better pain control. Continue with lortab for breakthrough pain. 2. Consider adding diazepam for spasticity. He may be a great candidate for baclofen pump evaluation as an outpatient. 3. Appreciate recs by [facility] Thanks for the consultation, will continue to follow while in the hospital.
[2017-10-25] MEDS: traZODone 100 MG Tablet PO SCH (20:54)
[2017-10-26] MEDS: Sod Chloride 0.9% Inj 1,000 ML IV.CONT SCH ×2 (00:06→07:54)
[2017-10-26] MEDS: Levothyroxine 88 MCG Tablet PO SCH (07:54)
[2017-10-26] MEDS: Senna/Docusate Sodium 8.6/50 MG Tablet PO SCH ×2 (08:58→22:56)
[2017-10-26] MEDS: Calcium Carbonate 500 MG Tablet PO SCH (08:59)
[2017-10-26] MEDS: Famotidine 20 MG Tablet PO SCH ×2 (08:59→22:56)
[2017-10-26] MEDS: Ascorbic Acid 500 MG Tablet PO SCH (08:59)
[2017-10-26] MEDS: Polyethylene Glycol 3350 17 GM Packet PO SCH (09:00)
[2017-10-26] MEDS ORDERED: LINZESS 290 MG PO SCH (09:00)
[2017-10-26] MEDS ORDERED: RISEDRONATE 30 MG PO ONE (09:00)
[2017-10-26] MEDS ORDERED: METHENAMINE MANDELATE 500 MG PO SCH (09:00)
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
--- NOTE | 2017-10-26 11:54 | P.PNNS ---
Subjective Interval history: THIS NOTE IF FOR 10/25/17, PATIENT WAS SEEN EXAMINED. 10/25: remains with painful intermittent spasms, CT Myelogram scheduled for Saturday as his Flexeril had to be stopped for 48 hours. <Yeny Boykin - Last Filed: 10/26/17 12:09> Physical Exam Vital signs: Vital Signs 10/25/17 16:00 10/25/17 20:00 10/26/17 00:00 Temperature 98.2 F 98.0 F 97.9 F Pulse Rate 69 53 L 58 L Respiratory Rate 16 17 17 Blood Pressure 168/96 H 179/86 H 137/70 Pulse Oximetry 95 96 97 10/26/17 03:52 10/26/17 08:47 Temperature 98.3 F 97.6 F Pulse Rate 62 63 Respiratory Rate 16 20 Blood Pressure 132/74 201/88 H Pulse Oximetry 96 98 Intake & Output 10/25/17 10/26/17 10/26/17 18:59 06:59 18:59 Intake Total 1999 / 1999 1000 / 1000 Balance 1999 1000 / 1000 Intake: IV 1000 / 1000 1000 / 1000 NS Inj 1,000 ML @ 100 mls/hr IV 1000 / 1000 1000 / 1000 .CONT .Q10H [facility] Rx#:[id number] Oral 1000 / 1000 Other: Date of Last Bowel Movement 10/23/17 Narrative: General: Well nourished. Appears mildly uncomfortable due to spams in legs during examination. HEENT: Normocephalic, atraumatic. Normal conjunctiva. No nasal drainage. Gross hearing intact bilaterally. No ear drainage. Neck: No masses, no JVD. Trachea midline. Good range of motion without pain Neuro: Awake, alert and oriented to person, place, and time. Speech is clear and fluent. Can follow single and multi-step commands without apraxia. Cranial nerve examination: pupils to be equal, round, and reactive to light. Extra-ocular movements are intact with normal convergence. Facial motor function are normal and symmetrical. Gross hearing is intact, bilaterally, to finger rub. The uvula is midline and elevates symmetrically with the soft palate. Sternocleidomastoid and deltoid muscles have normal and symmetrical strength. Other cranial nerves are intact. Deep tendon reflexes are 1+ patellar. Bilateral Babinski response. Extremities: Mild increased tone with positive fasciculation of thigh. Atrophy of legs and right hand interosseous muscles. 4/5 right upper extremity. 5/5 left upper extremity. In the lower extremities, strength is 4/ 5 legs. Moderate thoracic kyphosis. Cerebellar: Intact finger to nose bilaterally Lungs: Nonlabored breathing on room air, no wheezing,rhonchi or crackles. No accessory muscle use. Heart: Regular rate and rhythm Abdomen: Soft, nontender. Positive bowel sounds Skin: Warm and dry, no cyanosis. Diffuse wheal and hives throughout. <Yeny Boykin - Last Filed: 10/26/17 12:09> Vital signs: Vital Signs 10/27/17 20:00 10/27/17 23:23 10/28/17 04:00 Temperature 97.6 F 98.8 F 98.0 F Pulse Rate 70 63 64 Respiratory Rate 16 16 15 Blood Pressure 133/60 155/71 H 132/68 Pulse Oximetry 94 L 96 97 10/28/17 11:58 10/28/17 15:44 Temperature 97.7 F 97.8 F Pulse Rate 67 60 Respiratory Rate 16 16 Blood Pressure 132/66 167/77 H Pulse Oximetry 98 99 Intake & Output 10/27/17 10/28/17 10/28/17 18:59 06:59 18:59 Intake Total 1000 / 1000 Output Total 1999 Balance -1999 / -1999 1000 / 1000 Intake: IV 1000 / 1000 Output: Urine 1999 Other: Date of Last Bowel Movement 10/26/17 10/26/17 Narrative: General: Mr Street is uncomfortable due to right leg pain and spams in legs during examination. HEENT: Normocephalic, atraumatic. Normal conjunctiva. No nasal drainage. Gross hearing intact bilaterally. No ear drainage. Neck: No masses, no JVD. Trachea midline. Good range of motion without pain Neuro: Awake, alert and oriented to person, place, and time. Speech is clear and fluent. Can follow single and multi-step commands without apraxia. Cranial nerve examination: pupils to be equal, round, and reactive to light. Extra-ocular movements are intact with normal convergence. Facial motor function are normal and symmetrical. Gross hearing is intact, bilaterally, to finger rub. The uvula is midline and elevates symmetrically with the soft palate. Sternocleidomastoid and deltoid muscles have normal and symmetrical strength. Other cranial nerves are intact. Deep tendon reflexes are 1+ patellar. Bilateral Babinski response. Extremities: Mild increased tone with positive fasciculation of thigh. Atrophy of legs and right hand interosseous muscles. 4/5 right upper extremity. 5/5 left upper extremity. In the lower extremities, strength is 4/ 5 legs. Moderate thoracic kyphosis. Cerebellar: Intact finger to nose bilaterally Lungs: Nonlabored breathing on room air, no wheezing,rhonchi or crackles. No accessory muscle use. Heart: Regular rate and rhythm Abdomen: Soft, nontender. Positive bowel sounds Skin: Warm and dry <Hector Mir - Last Filed: 10/28/17 17:54> Assessment and Plan - Plan Plan: CT Myelogram C, T, L spine pending Saturday hold heparin cont current care further NRS recs upon completion of myelogram <Yeny Boykin - Last Filed: 10/26/17 12:09> - Plan Neuro: Continue neuro checks. I recommend that he undergoes a myelography and post myelogram CT of cervical, thoracic, and lumbar spine in the morning. He will need to wait due to conflict with some of his medications If he has significant nmeural compression he will need surgical decompression Spasticity - he has tried baclofen and valium in the past with no improvement. Will trial zanaflex. Trial of valium Continue with bowel and bladder program. 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 Daily PT and OT Renal: Continue to monitor closely urine output, BUN and creatinine Endocrine: Continue to Monitor serial Acu checks and SSI as needed in detail ID antibiotics for possible urosepsis. Leukocytosis could be from recent steroids vs infection Continue Protonix for stress ulcer prophylaxis Continue Jelani hose and SCD's for DVT prophylaxis Further recommendations will be provided depending on the patient's clinical evaluation and follow up studies. The exam, history, and the medical decision-making described in the above note were completed with the assistance of the mid-level provider. I reviewed and agree with the findings presented. I attest that I had a [id number] encounter with the patient on the same day, and personally performed and documented my assessment and findings in the medical record. <Clarke,Hector - Last Filed: 10/28/17 17:54>
--- NOTE | 2017-10-26 12:09 | P.PNNS ---
Subjective Interval history: 10/26: had again point of relief from spasms then spontaneous return. looking forward for test on Saturday to hopefully get more answers. <Yeny Boykin - Last Filed: 10/26/17 12:10> Physical Exam Vital signs: Vital Signs 10/25/17 16:00 10/25/17 20:00 10/26/17 00:00 Temperature 98.2 F 98.0 F 97.9 F Pulse Rate 69 53 L 58 L Respiratory Rate 16 17 17 Blood Pressure 168/96 H 179/86 H 137/70 Pulse Oximetry 95 96 97 10/26/17 03:52 10/26/17 08:47 Temperature 98.3 F 97.6 F Pulse Rate 62 63 Respiratory Rate 16 20 Blood Pressure 132/74 201/88 H Pulse Oximetry 96 98 Intake & Output 10/25/17 10/26/17 10/26/17 18:59 06:59 18:59 Intake Total 2000 / 1999 1000 / 1000 Balance 2000 / 2000 1000 / 1000 Intake: IV 1000 / 1000 1000 / 1000 NS Inj 1,000 ML @ 100 mls/hr IV 1000 / 1000 1000 / 1000 .CONT .Q10H [facility] Rx#:[id number] Oral 1000 / 1000 Other: Date of Last Bowel Movement 10/23/17 Narrative: General: Well nourished. No apparent distress, laying flat in bed. HEENT: Normocephalic, atraumatic. Normal conjunctiva. No nasal drainage. Gross hearing intact bilaterally. No ear drainage. Neck: No masses, no JVD. Trachea midline. Good range of motion without pain Neuro: Awake, alert and oriented to person, place, and time. Speech is clear and fluent. Can follow single and multi-step commands without apraxia. Cranial nerve examination: pupils equal, round, and reactive to light. Extra- ocular movements are intact with normal convergence. Facial motor function are normal and symmetrical. Other cranial nerves are intact. Deep tendon reflexes are 1+ patellar. Bilateral Babinski response. Extremities: Mild increased tone with positive fasciculation of thigh. Atrophy of legs and right hand interosseous muscles. 4/5 right upper extremity. 5/5 left upper extremity. In the lower extremities, strength is 4/ 5 legs. Moderate thoracic kyphosis. Lungs: Nonlabored breathing on room air, no wheezing,rhonchi or crackles. No accessory muscle use. Heart: Regular rate and rhythm Abdomen: Soft, nontender. Positive bowel sounds Skin: Warm and dry, no cyanosis. <Yeny Boykin - Last Filed: 10/26/17 12:10> Vital signs: Vital Signs 10/27/17 20:00 10/27/17 23:23 10/28/17 04:00 Temperature 97.6 F 98.8 F 98.0 F Pulse Rate 70 63 64 Respiratory Rate 16 16 15 Blood Pressure 133/60 155/71 H 132/68 Pulse Oximetry 94 L 96 97 10/28/17 11:58 10/28/17 15:44 Temperature 97.7 F 97.8 F Pulse Rate 67 60 Respiratory Rate 16 16 Blood Pressure 132/66 167/77 H Pulse Oximetry 98 99 Intake & Output 10/27/17 10/28/17 10/28/17 18:59 06:59 18:59 Intake Total 1000 / 1000 Output Total 1999 Balance -1999 -1999 1000 / 1000 Intake: IV 1000 / 1000 Output: Urine 1999 Other: Date of Last Bowel Movement 10/26/17 10/26/17 Narrative: General: Mr Street is well nourished. No apparent distress, laying flat in bed. HEENT: Normocephalic, atraumatic. Normal conjunctiva. No nasal drainage. Gross hearing intact bilaterally. No ear drainage. Neck: No masses, no JVD. Trachea midline. Good range of motion without pain Neuro: Awake, alert and oriented to person, place, and time. Speech is clear and fluent. Can follow single and multi-step commands without apraxia. Cranial nerve examination: pupils equal, round, and reactive to light. Extra- ocular movements are intact with normal convergence. Facial motor function are normal and symmetrical. Other cranial nerves are intact. Deep tendon reflexes are 1+ patellar. Bilateral Babinski response. Extremities: Mild increased tone with positive fasciculation of thigh. Atrophy of legs and right hand interosseous muscles. 4/5 right upper extremity. 5/5 left upper extremity. In the lower extremities, strength is 4/ 5 legs. Moderate thoracic kyphosis. Lungs: Nonlabored breathing on room air, no wheezing,rhonchi or crackles. No accessory muscle use. Heart: Regular rate and rhythm Abdomen: Soft, nontender. Positive bowel sounds Skin: Warm and dry, no cyanosis. <Clarke,Hector - Last Filed: 10/28/17 17:52> Assessment and Plan - Plan Plan: CT Myelogram C, T, L spine pending Saturday cont current care further NRS recs upon completion of myelogram start on Valium 5 mg q8 hrs per Dr. Mir as pt's flexeril held for myelogram <Yeny Boykin - Last Filed: 10/26/17 12:10> - Plan Neuro: Continue neuro checks. Awaiting a myelography and post myelogram CT of cervical, thoracic, and lumbar spine in the morning. If he has significant nmeural compression he will need surgical decompression Spasticity - he has tried baclofen and valium in the past with no improvement. Will trial zanaflex. Trial of valium Continue with bowel and bladder program. 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 Daily PT and OT Renal: Continue to monitor closely urine output, BUN and creatinine Endocrine: Continue to Monitor serial Acu checks and SSI as needed in detail ID antibiotics for possible urosepsis. Leukocytosis could be from recent steroids vs infection Continue Protonix for stress ulcer prophylaxis Continue Jelani hose and SCD's for DVT prophylaxis Further recommendations will be provided depending on the patient's clinical evaluation and follow up studies. The exam, history, and the medical decision-making described in the above note were completed with the assistance of the mid-level provider. I reviewed and agree with the findings presented. I attest that I had a [id number] encounter with the patient on the same day, and personally performed and documented my assessment and findings in the medical record. <Hector Mir - Last Filed: 10/28/17 17:52>
[2017-10-27] MEDS: METHENAMINE HIPPURATE PO SCH ×3 (00:32→23:49)
[2017-10-27] MEDS: Sod Chloride 0.9% Inj 1,000 ML IV.CONT SCH (03:24)
[2017-10-27] MEDS: Levothyroxine 88 MCG Tablet PO SCH (07:27)
[2017-10-27] MEDS: Polyethylene Glycol 3350 17 GM Packet PO SCH (08:23)
[2017-10-27] MEDS: Calcium Carbonate 500 MG Tablet PO SCH (08:24)
[2017-10-27] MEDS: Senna/Docusate Sodium 8.6/50 MG Tablet PO SCH ×2 (08:24→21:21)
[2017-10-27] MEDS: Ascorbic Acid 500 MG Tablet PO SCH (08:24)
[2017-10-27] MEDS: Famotidine 20 MG Tablet PO SCH ×2 (08:24→21:22)
[2017-10-27] MEDS ORDERED: HYDROmorphone PF Inj 0.5 MG/0.5 ML Syringe IV.PUSH ONE (11:18)
[2017-10-27] MEDS ORDERED: HYDROmorphone PF Inj 2 MG/ML Vial IV.PUSH ONE (11:45)
--- NOTE | 2017-10-27 11:50 | P.PNNS ---
Subjective Interval history: 10/27: having severe pain and spasms currently. on a fentanyl patch, Lortab, and Valium not helping. <Yeny Boykin - Last Filed: 10/29/17 10:24> Physical Exam Vital signs: Vital Signs 10/27/17 20:00 10/27/17 23:23 10/28/17 04:00 Temperature 97.6 F 98.8 F 98.0 F Pulse Rate 70 63 64 Respiratory Rate 16 16 15 Blood Pressure 133/60 155/71 H 132/68 Pulse Oximetry 94 L 96 97 10/28/17 11:58 10/28/17 15:44 Temperature 97.7 F 97.8 F Pulse Rate 67 60 Respiratory Rate 16 16 Blood Pressure 132/66 167/77 H Pulse Oximetry 98 99 Intake & Output 10/27/17 10/28/17 10/28/17 18:59 06:59 18:59 Intake Total 1000 / 1000 Output Total 1999 Balance -1999 -1999 1000 / 1000 Intake: IV 1000 / 1000 Output: Urine 1999 Other: Date of Last Bowel Movement 10/26/17 10/26/17 Narrative: General: Well nourished. No apparent distress, laying flat in bed. HEENT: Normocephalic, atraumatic. Normal conjunctiva. No nasal drainage. Gross hearing intact bilaterally. No ear drainage. Neck: No masses, no JVD. Trachea midline. Good range of motion without pain Neuro: Awake, alert and oriented to person, place, and time. Speech is clear and fluent. Can follow single and multi-step commands without apraxia. Cranial nerve examination: pupils equal, round, and reactive to light. Extra- ocular movements are intact with normal convergence. Facial motor function are normal and symmetrical. Other cranial nerves are intact. Deep tendon reflexes are 1+ patellar. Bilateral Babinski response. Extremities: Mild increased tone with positive fasciculation of thigh. Atrophy of legs and right hand interosseous muscles. 4/5 right upper extremity. 5/5 left upper extremity. In the lower extremities, strength is 4/ 5 legs. Moderate thoracic kyphosis. Lungs: Nonlabored breathing on room air, no wheezing,rhonchi or crackles. No accessory muscle use. Heart: Regular rate and rhythm Abdomen: Soft, nontender. Positive bowel sounds Skin: Warm and dry, no cyanosis. <Clarke,Hector - Last Filed: 10/28/17 17:47> Vital signs: Vital Signs 10/26/17 12:00 10/26/17 15:07 10/26/17 20:00 Temperature 97.6 F 98.1 F 97.7 F Pulse Rate 60 73 81 Respiratory Rate 16 18 16 Blood Pressure 191/86 H 173/100 H 148/86 H Pulse Oximetry 96 99 95 10/26/17 22:56 10/26/17 23:19 10/27/17 03:51 Temperature 97.6 F 98.2 F Pulse Rate 64 72 Respiratory Rate 8 L 18 19 Blood Pressure 175/80 H 155/89 H Pulse Oximetry 98 96 10/27/17 08:00 Temperature 97.5 F L Pulse Rate 70 Respiratory Rate 18 Blood Pressure 168/81 H Pulse Oximetry 96 Intake & Output 10/26/17 10/27/17 10/27/17 18:59 06:59 18:59 Intake Total 980 / 980 Output Total 1100 / 1100 Balance -120 / -120 Intake: Oral 980 / 980 Output: Urine 1100 / 1100 Other: # Voids 1 Date of Last Bowel Movement 10/26/17 10/26/17 # Bowel Movements 1 Narrative: awake, alert in moderate distress due to pain, staying in a position exam limited due to severity of pain <Yeny Boykin - Last Filed: 10/29/17 10:24> Assessment and Plan - Plan Neuro: Continue neuro checks. He will undergo a myelography and post myelogram CT of cervical, thoracic, and lumbar spine in the morning. If he has significant nmeural compression he will need surgical decompression Spasticity - he has tried baclofen and valium in the past with no improvement. Will trial zanaflex. Trial of valium Continue with bowel and bladder program. 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 Daily PT and OT Renal: Continue to monitor closely urine output, BUN and creatinine Endocrine: Continue to Monitor serial Acu checks and SSI as needed in detail ID antibiotics for possible urosepsis. Leukocytosis could be from recent steroids vs infection Continue Protonix for stress ulcer prophylaxis Continue Jelani hose and SCD's for DVT prophylaxis Further recommendations will be provided depending on the patient's clinical evaluation and follow up studies. Discussed with Dr Godinez The exam, history, and the medical decision-making described in the above note were completed with the assistance of the mid-level provider. I reviewed and agree with the findings presented. I attest that I had a [id number] encounter with the patient on the same day, and personally performed and documented my assessment and findings in the medical record. <Hector Mir - Last Filed: 10/28/17 17:47> - Plan Plan: CT Myelogram C, T, L spine pending tomorrow cont current care further NRS recs upon completion of myelogram cont Valium 5 mg q8 hrs per Dr. Mir as pt's flexeril held for myelogram start on Neurontin to see if this helps <Yeny Boykin - Last Filed: 10/29/17 10:24>
--- NOTE | 2017-10-27 15:06 | P.PN ---
Subjective Interval history: Follow-up visit HTN, back pain, spasticity. Patient seen and examined today. Patient is crying in severe pain. Nurse requested to give patient 1 mg IV Dilaudid now. Spoke with Dr. Mir regarding patient condition will start on gabapentin and will give breakthrough Dilaudid. Patient keeps on saying that he is in severe pain and he wants gone or just end his life because of the pain. Reassured patient. No nausea or vomiting. Continues to have spasticity. Physical Exam Vital signs: Vital Signs 10/26/17 15:07 10/26/17 20:00 10/26/17 22:56 Temperature 98.1 F 97.7 F Pulse Rate 73 81 Respiratory Rate 18 16 8 L Blood Pressure 173/100 H 148/86 H Pulse Oximetry 99 95 10/26/17 23:19 10/27/17 03:51 10/27/17 08:00 Temperature 97.6 F 98.2 F 97.5 F L Pulse Rate 64 72 70 Respiratory Rate 18 19 18 Blood Pressure 175/80 H 155/89 H 168/81 H Pulse Oximetry 98 96 96 10/27/17 12:00 Temperature 97.8 F Pulse Rate 84 Respiratory Rate 16 Blood Pressure 127/60 Pulse Oximetry 99 Intake & Output 10/26/17 10/27/17 10/27/17 18:59 06:59 18:59 Intake Total 980 / 980 Output Total 1100 / 1100 Balance -120 / -120 Intake: Oral 980 / 980 Output: Urine 1100 / 1100 Other: # Voids 1 Date of Last Bowel Movement 10/26/17 10/26/17 10/26/17 # Bowel Movements 1 Narrative: GENERAL: This is a patient with moderate distress secondary to spasticity. SKIN: Warm and dry. Maculopapular rash improved. HEENT: Normocephalic. Pupils equal round and reactive. Nose without bleeding. Airway patent. NECK: Trachea midline. Supple. CARDIOVASCULAR: Regular rate and rhythm without murmurs, gallops, or rubs. RESPIRATORY: Clear to auscultation. Breath sounds equal bilaterally. No wheezes , rales, or rhonchi. GASTROINTESTINAL: Abdomen soft, non-tender, nondistended. Bowel Sounds normoactive x4. MUSCULOSKELETAL: Extremities without clubbing, cyanosis, or edema. NEUROLOGICAL: Awake and alert. Tearful. Results - Labs CBC & Chem 7: 10/23/17 07:47 10/23/17 07:47 Assessment and Plan - Plan 67-year-old male with past medical history significant for T9/10 trauma now with residual paralysis and hypertension presents to the emergency department for the evaluation of back spasm and pain. Back pain/spasticity: acute on chronic -Continued home [place] -Rehab medicine consulted, appreciate recommendations -Dr. Crump added Zanaflex 4mg po q8h however now discontinued as patient has allergic reaction with hives -On Flexeril prn spasms, held for plan CT myelogram -Lumbar spine CT showed Levoscoliosis of the lumbar spine with associated multilevel DDD; Some degree of central spinal stenosis from L2-3, L3-4 and L5- S1 due to diffuse disc bulge and facet hypertrophy; Foraminal narrowing rightward at L4-5 due to a combination of disc and facet hypertrophy may compromise the right L4 nerve root. -Thoracic spine CT showed Dextroscoliosis of the thoracolumbar spine with associated degenerative spurring; Shrapnel fragments to the right in the T8-9 disc interspace; No acute fracture. Despite the scoliosis, spinal canal appears to be adequate throughout without cord compromise -Consulted neurosurgery, appreciate recommendations -Physical therapy eval and treat. [facility] PT and OT if patient can transfer to wheelchair -Planning for CT myelogram on Saturday (needs to be off Flexeril and trazodone x48hrs) -Start on gabapentin by Dr. Mir. Dilaudid 1 mg 1 dose now. Dilaudid 0.5 mg for breakthrough pain. Sepsis with UTI: UA consistent with urinary tract infection, meets sepsis criteria with tachycardia HR 97, and leukocytosis WBC 19K (although recently received steroid injection last Wednesday 10/18). -Urine culture resulted with mixed kalin, probably contaminants -D/c IV Rocephin -sepsis resolved, leukocytosis resolved, WBC 6.7, tachycardia resolved. Hives: after taking Baclofen -Initially resolved with Benadryl and IV steroids -Now patient with recurrent hives on Zanaflex, will d/c zanaflex, give benadryl, pepcid, prednisone -added zanaflex and baclofen to allergy list -hives much improved, almost resolved Hypertension: chronic -Continue patient's Diovan (converted to losartan) and HCTZ -Monitor BP, adjust antihypertensives as needed Hypothyroidism: chronic -Continue home Synthroid Chronic Constipation: suspect secondary to spinal injury and chronic opiate use. -continue patient's miralax bid and dulcolax -monitor BMs DVT Prophylaxis: Heparin sq Code Status: Full code Discussed Condition With: Patient, nursing, Dr. Mir Discharge Planning: Still needs procedure to be done by Saturday.
[2017-10-27] MEDS: Gabapentin 300 MG Capsule PO SCH ×2 (15:53→19:34)
[2017-10-27] MEDS: HYDROmorphone PF Inj 2 MG/ML Vial IV.PUSH PRN ×2 (18:56→23:03)
[2017-10-28] MEDS: HYDROmorphone PF Inj 2 MG/ML Vial IV.PUSH PRN (05:07)
[2017-10-28] MEDS: Levothyroxine 88 MCG Tablet PO SCH (06:49)
[2017-10-28] MEDS: Senna/Docusate Sodium 8.6/50 MG Tablet PO SCH ×2 (08:21→21:15)
[2017-10-28] MEDS: Calcium Carbonate 500 MG Tablet PO SCH (08:22)
[2017-10-28] MEDS: Gabapentin 300 MG Capsule PO SCH ×3 (08:22→17:07)
[2017-10-28] MEDS: Polyethylene Glycol 3350 17 GM Packet PO SCH (08:22)
[2017-10-28] MEDS: Ascorbic Acid 500 MG Tablet PO SCH (08:22)
[2017-10-28] MEDS: Famotidine 20 MG Tablet PO SCH ×2 (08:22→21:15)
[2017-10-28] MEDS: METHENAMINE HIPPURATE PO SCH ×2 (08:23→21:16)
--- NOTE | 2017-10-28 09:46 | P.RAD ---
Post Procedure Progress Note - Pre Procedure Diagnosis (1) Spinal cord injury (2) Muscle spasm - Post Procedure Diagnosis (1) Spinal cord injury (2) Muscle spasm - Procedure Information Procedure Date: 10/28/17 Supervising Radiologist: Tay Omalley MD Estimated blood loss (mL): 0 Anesthesia: Local, Conscious Sedation - Plan of Activity Patient to Unit: Nursing Unit Patient Condition: Poor Additional Comments: Myleogram completed.single puncture at L3 Full dictated report to follow See PACS Report for procedural detail/treatment.
--- NOTE | 2017-10-28 10:00 | P.PN ---
Subjective Interval history: Follow-up visit HTN, back pain, spasticity. Patient seen and examined today. Asleep, comfortable. S/P CT myelogram. Physical Exam Vital signs: Vital Signs 10/27/17 12:00 10/27/17 16:00 10/27/17 20:00 Temperature 97.8 F 97.4 F L 97.6 F Pulse Rate 84 78 70 Respiratory Rate 16 18 16 Blood Pressure 127/60 120/71 133/60 Pulse Oximetry 99 98 94 L 10/27/17 23:23 10/28/17 04:00 Temperature 98.8 F 98.0 F Pulse Rate 63 64 Respiratory Rate 16 15 Blood Pressure 155/71 H 132/68 Pulse Oximetry 96 97 Intake & Output 10/27/17 10/28/17 10/28/17 18:59 06:59 18:59 Intake Total 1000 / 1000 Output Total 1999 Balance -1999 -1999 1000 / 1000 Intake: IV 1000 / 1000 Output: Urine 1999 Other: Date of Last Bowel Movement 10/26/17 10/26/17 Narrative: GENERAL: Patient appears comfortable, no distress SKIN: Warm and dry. HEENT: Normocephalic. Pupils equal round and reactive. Nose without bleeding. Airway patent. NECK: Trachea midline. Supple. CARDIOVASCULAR: Regular rate and rhythm without murmurs, gallops, or rubs. RESPIRATORY: Clear to auscultation. Breath sounds equal bilaterally. No wheezes , rales, or rhonchi. GASTROINTESTINAL: Abdomen soft, non-tender, nondistended. Bowel Sounds normoactive x4. MUSCULOSKELETAL: Extremities without clubbing, cyanosis, or edema. NEUROLOGICAL: Drowsy. Arousable Results - Labs CBC & Chem 7: 10/23/17 07:47 10/23/17 07:47 Assessment and Plan - Plan 67-year-old male with past medical history significant for T9/10 trauma now with residual paralysis and hypertension presents to the emergency department for the evaluation of back spasm and pain. Back pain/spasticity: acute on chronic -Continued home [place] -Rehab medicine consulted, appreciate recommendations -Dr. Crump added Zanaflex 4mg po q8h however now discontinued as patient has allergic reaction with hives -On Flexeril prn spasms, held for plan CT myelogram -Lumbar spine CT showed Levoscoliosis of the lumbar spine with associated multilevel DDD; Some degree of central spinal stenosis from L2-3, L3-4 and L5- S1 due to diffuse disc bulge and facet hypertrophy; Foraminal narrowing rightward at L4-5 due to a combination of disc and facet hypertrophy may compromise the right L4 nerve root. -Thoracic spine CT showed Dextroscoliosis of the thoracolumbar spine with associated degenerative spurring; Shrapnel fragments to the right in the T8-9 disc interspace; No acute fracture. Despite the scoliosis, spinal canal appears to be adequate throughout without cord compromise -Consulted neurosurgery, appreciate recommendations -Physical therapy eval and treat. [facility] PT and OT if patient can transfer to wheelchair -Planning for CT myelogram on Saturday (needs to be off Flexeril and trazodone x48hrs) -Gabapentin by Dr. Mir. Dilaudid 1 mg 1 dose now. Dilaudid 0.5 mg for breakthrough pain. -CT myelogram done. Pending evaluation of neurosurgery. Plan to DC home when no procedures are to be done. Sepsis with UTI: UA consistent with urinary tract infection, meets sepsis criteria with tachycardia HR 97, and leukocytosis WBC 19K (although recently received steroid injection last Wednesday 10/18). -Urine culture resulted with mixed kalin, probably contaminants -D/c IV Rocephin -sepsis resolved, leukocytosis resolved, WBC 6.7, tachycardia resolved. Hives: after taking Baclofen -Initially resolved with Benadryl and IV steroids -Now patient with recurrent hives on Zanaflex, will d/c zanaflex, give benadryl, pepcid, prednisone -added zanaflex and baclofen to allergy list -hives much improved, almost resolved Hypertension: chronic -Continue patient's Diovan (converted to losartan) and HCTZ -Monitor BP, adjust antihypertensives as needed Hypothyroidism: chronic -Continue home Synthroid Chronic Constipation: suspect secondary to spinal injury and chronic opiate use. -continue patient's miralax bid and dulcolax -monitor BMs DVT Prophylaxis: Heparin sq Code Status: Full code Discussed Condition With: Patient, nursing Discharge Planning: Plan to DC home when cleared by neurosurgery.
--- NOTE | 2017-10-28 11:27 | IR ---
EXAM DATE: 10/28/2017 10:14 AM EDT AGE/SEX: 67 years / Male INDICATIONS: Patient presents to emergency department for back spasm and pain. CLINICAL DATA: This is the patient's initial encounter. Patient reports that signs and symptoms have been present for 1 week and indicates a pain score of 9/10. MEDICAL/SURGICAL HISTORY: Hypertension. back pain, dislocation of t9/t10, GUILLAIN BARRE syndro me, scoliosis, sinus abscess Rotator cuff, right. lung surgery, penile implant, hx of laminectomy COMPARISON: No prior exams available for comparison. FLUORO TIME (min): 1.68 IMAGE SERIES: 4 ACCESS SITE: L3-4 LUMBAR PUNCTURE TIME: 0922 hours CONTRAST (cc): 18 Omnipaque (iohexol) 300 . . PROCEDURE: 1. Fluoroscopic guided lumbar puncture. 2. Instillation of intrathecal contrast. 3. Total spinal axis myelogram. The risks, benefits and alternatives to the procedure were explained and verbal and written consent w as obtained. The site was prepped in sterile fashion. Full sterile technique was used, including ca p, mask, sterile gloves and gown and a large sterile sheet. Hand hygiene and 2% chlorhexidine and/or betadine/alcohol prep was utilized per protocol for cutaneous antisepsis. The skin and subcutaneous tissues were infiltrated with local anesthetic solution. With fluoroscopic guidance the lumbar thecal sac was punctured at level above and a diagnostic quanti ty of contrast is present in the subarachnoid space. Following the lumbar radiographs in attempt was made to place the patient in Trendelenburg to allow contrast to follow-up to the cervical spine. Thi s was unsuccessful due to the patient's spasticity. The patient was placed back in his hospital bed [facility] on his side. The patient tolerated procedure well and there were no complications. CT scan is to be performed for further evaluation. CONCLUSION: 1. Uncomplicated total axis myelogram as above. CT scan is to be performed for further evaluation. Electronically signed by: Tay Omalley MD 10/28/2017 11:26 AM EDT
--- NOTE | 2017-10-28 11:39 | CT ---
EXAM DATE: 10/28/2017 11:25 AM EDT AGE/SEX: 67 years / Male INDICATIONS: Post cervical myelogram. CLINICAL DATA: This is the patient's initial encounter. Patient reports that signs and symptoms have been present for 1 day and indicates a pain score of 4/10. MEDICAL/SURGICAL HISTORY: None. None. RADIATION DOSE: 24.13 CTDI (mGy) COMPARISON: [facility] [place] THORACIC [place]INE W/O CONTRAST, 10/24/2017. . TECHNIQUE: Contiguous axial images were obtained using helical multirow detector technique. The vol umetric data was post-processed with multiplanar reconstruction in oblique axial, sagittal, and coron al planes. Using automated exposure control and adjustment of the mA and/or kV according to patient s ize, radiation dose was kept as low as reasonably achievable to obtain optimal diagnostic quality lilian ges. DICOM format image data is available electronically for review and comparison. CT of the cervical spine was performed post myelogram FINDINGS: Sagittal images demonstrate normal vertebral body alignment and curvature. The odontoid is intact. Th e occipital condyles and lateral masses of C1 are intact. Axial images were performed from C2-C3 to C7-T1.There is multilevel degenerative disc disease and marginal osteophyte formation maximal at C5- C6. C2-C3: There is osteophytic ridging asymmetric to the right. The neural foramina are clear bilateral ly. C3-C4: There is osteophytic ridging asymmetric to the right. There is mild right-sided foraminal anita rowing. C4-C5: There is broad-based protrusion. There is mild spinal canal stenosis. This compromises the ex iting right-sided nerve root exit zone. There is mild right-sided foraminal narrowing. C5-C6: There is uncovertebral joint hypertrophy on the right side. This compromises the exiting righ t-sided nerve root exit zone. There is mild neural foraminal narrowing bilaterally. C6-C7: There is mild annular bulge of the disc. There is mild right-sided foraminal narrowing. There is no significant spinal canal stenosis. C7-T1: No significant abnormalities identified. CONCLUSION: Multilevel degenerative disc disease maximal at C4-C5 with mild spinal canal stenosis. Multilevel right-sided foraminal narrowing. Electronically signed by: Ralph Booth MD 10/28/2017 11:38 AM EDT
--- NOTE | 2017-10-28 12:01 | CT ---
EXAM DATE: 10/28/2017 11:35 AM EDT AGE/SEX: 67 years / Male INDICATIONS: Post thoracic myelogram. CLINICAL DATA: This is the patient's initial encounter. Patient reports that signs and symptoms have been present for 1 day and indicates a pain score of 4/10. MEDICAL/SURGICAL HISTORY: None. None. RADIATION DOSE: 35.20 CTDI (mGy) ; Combined studies COMPARISON: No prior exams available for comparison. TECHNIQUE: Contiguous axial images were acquired using a multirow detector CT scanner without contra st. Multiplanar reconstruction in the sagittal and coronal planes was performed. Using automated exp osure control and adjustment of the mA and/or kV according to patient size, radiation dose was kept a s low as reasonably achievable to obtain optimal diagnostic quality images. DICOM format image data is available electronically for review and comparison. CT of the thoracic spine was performed post myelogram. FINDINGS: Sagittal images demonstrate normal vertebral body alignment and curvature. No fractures identified. A xial images performed from T1-T2 through T12-L1. There is alveolar disease in the left upper lobe whi ch may reflect inflammatory process or scar. There is a staple line in the right apex. No pulmonary n odules are identified. T1-T2: There is mild annular bulge of the disc asymmetric to the right. T2-T3: No significant abnormalities identified. T3-T4: No significant abnormalities identified. T4-T5: There is mild diffuse annular bulge of the disc. The neural foramina are clear bilaterally. T here is no significant spinal canal stenosis. T5-T6: No significant abnormalities identified. T6-T7: No significant abnormalities identified. T7-T8: A central to left sided disc protrusion is present impinging on the thecal sac. There is no s ignificant spinal canal stenosis. The neural foramina are clear bilaterally. T8-T9: No significant abnormalities identified. Metallic fragments are present in the pedicle at T8 on the right T9-T10: No significant abnormalities identified. T10-T11: No significant abnormalities identified. T11-T12: No significant abnormalities identified. T12-L1: No significant abnormalities identified. CONCLUSION: Small central posterior disc protrusion at T7-T8. There is no significant spinal canal stenosis. The neural foramina are clear bilaterally. Electronically signed by: Ralph Booth MD 10/28/2017 12:00 PM EDT
--- NOTE | 2017-10-28 12:30 | CT ---
EXAM DATE: 10/28/2017 11:37 AM EDT AGE/SEX: 67 years / Male INDICATIONS: Post lumbar myelogram. CLINICAL DATA: This is the patient's initial encounter. Patient reports that signs and symptoms have been present for 1 day and indicates a pain score of 4/10. MEDICAL/SURGICAL HISTORY: None. None. RADIATION DOSE: 35.20 CTDI (mGy) ; Combined studies COMPARISON: No prior exams available for comparison. CT of the lumbar spine was performed post myelogram. TECHNIQUE: Contiguous axial images were acquired with a multirow detector CT scanner without contras t. Multiplanar reconstructions in the sagittal and coronal plane were also performed. Using automate d exposure control and adjustment of the mA and/or kV according to patient size, radiation dose was k ept as low as reasonably achievable to obtain optimal diagnostic quality images. DICOM format image data is available electronically for review and comparison. FINDINGS: Sagittal images demonstrate normal vertebral body alignment and curvature. No fractures are identifie d. Axial images performed from T12-L1 through L5-S1. There is multilevel disc space narrowing and mar ginal osteophyte formation maximal at L3-L4. There is mild scoliotic deformity convex to the left. T12-L1: No significant abnormalities identified. L1-L2: No significant abnormalities identified. L2-L3: There is mild diffuse annular bulge of the disc. The neural foramina are clear bilaterally. T here is no significant spinal canal stenosis. L3-L4: There is broad-based annular bulge of disc asymmetric to the right. There is no significant s james canal stenosis. There is mild facet arthritis and ligamentum flavum hypertrophy bilaterally. L4-L5: There is a large right-sided protrusion at L4-L5 compromising the exiting right L4 traversing right L5 nerve root. There is mild spinal canal stenosis. L5-S1: No significant abnormalities identified. CONCLUSION: Large right-sided protrusion at L4-L5 compromising the exiting right L4 traversing right L5 nerve aj t. There is mild spinal canal stenosis. Electronically signed by: Ralph Booth MD 10/28/2017 12:28 PM EDT
--- NOTE | 2017-10-28 17:47 | P.PNNS ---
Subjective Interval history: 10/27: having severe pain and spasms currently. on a fentanyl patch, Lortab, and Valium not helping. 10/28. Continues to suffer severe pain. Myelogram and postmyelogram was done Physical Exam Vital signs: Vital Signs 10/27/17 20:00 10/27/17 23:23 10/28/17 04:00 Temperature 97.6 F 98.8 F 98.0 F Pulse Rate 70 63 64 Respiratory Rate 16 16 15 Blood Pressure 133/60 155/71 H 132/68 Pulse Oximetry 94 L 96 97 10/28/17 11:58 10/28/17 15:44 Temperature 97.7 F 97.8 F Pulse Rate 67 60 Respiratory Rate 16 16 Blood Pressure 132/66 167/77 H Pulse Oximetry 98 99 Intake & Output 10/27/17 10/28/17 10/28/17 18:59 06:59 18:59 Intake Total 1000 / 1000 Output Total 1999 Balance -1999 / -1999 1000 / 1000 Intake: IV 1000 / 1000 Output: Urine 1999 Other: Date of Last Bowel Movement 10/26/17 10/26/17 Narrative: General: Mr Street is well nourished. Appears uncomfortable due to pain and spams in his right lower extremity HEENT: Normocephalic, atraumatic. Normal conjunctiva. No nasal drainage. Gross hearing intact bilaterally. No ear drainage. Neck: No masses, no JVD. Trachea midline. Good range of motion without pain Neuro: Awake, alert and oriented to person, place, and time. Speech is clear and fluent. Can follow single and multi-step commands without apraxia. Cranial nerve examination: pupils to be equal, round, and reactive to light. Extra-ocular movements are intact with normal convergence. Facial motor function are normal and symmetrical. Gross hearing is intact, bilaterally, to finger rub. The uvula is midline and elevates symmetrically with the soft palate. Sternocleidomastoid and deltoid muscles have normal and symmetrical strength. Other cranial nerves are intact. Deep tendon reflexes are 1+ patellar. Bilateral Babinski response. Extremities: Mild increased tone with positive fasciculation of thigh. Atrophy of legs and right hand interosseous muscles. 4/5 right upper extremity. 5/5 left upper extremity. In the lower extremities, strength is 4/ 5 legs. Moderate thoracic kyphosis. Cerebellar: Intact finger to nose bilaterally Lungs: Nonlabored breathing on room air, no wheezing,rhonchi or crackles. No accessory muscle use. Heart: Regular rate and rhythm Abdomen: Soft, nontender. Positive bowel sounds Skin: Warm and dry, no cyanosis. Diffuse wheal and hives throughout. Assessment and Plan - Plan Neuro: I reviewed his myelogram and Ct scan Abdomen X-Ray 10/21/17 21:49 CONCLUSION: 1. Minimal air distention of small and large bowel in a nonobstructive pattern. No findings of stool retention/constipation. 2. S-shaped scoliosis of the thoracolumbar spine. 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 Lumbar Spine CT 10/23/17 00:00 CONCLUSION: 1. Levoscoliosis of the lumbar spine with associated multilevel degenerative disc disease. 2. Some degree of central spinal stenosis from L2-3, L3-4 and L5-S1 due to diffuse disc bulge and facet hypertrophy. 3. Foraminal narrowing rightward at L4-5 due to a combination of disc and facet hypertrophy may compromise the right L4 nerve root. 4. No acute fracture. Thoracic Spine CT 10/24/17 00:00 CONCLUSION: Myelogram 10/28/17 00:00 CONCLUSION: 1. Uncomplicated total axis myelogram as above. CT scan is to be performed for further evaluation. Post Myelogram CT 10/28/17 00:00 CONCLUSION: Large right-sided protrusion at L4-L5 compromising the exiting right L4 traversing right L5 nerve root. There is mild spinal canal stenosis. Continue neuro checks. Large right-sided protrusion at L4-L5 compromising the exiting right L4 traversing right L5 nerve root. He has clinical evidence of right L4 and L5 radiculopathy. I discussed with her the alternative of continuing nonsurgical treatment with further pain management and physical therapy, analgesics, and antiimflammatories, versus consideration to a surgical decompression with a right L4-5 right hemilaminectomy, mesoofacetectomy, foraminotomy with microsurgical resection of the disk. . Using the patients radiologic studies, anatomical model(s) I have discussed the details of the surgical decompression including the [id number] procedure, its indications, alternatives, risks, and potential complications. Risks and potential complications include, but are not limited to, infection, blood loss, CSF leak, partial or complete loss of sight in one or both eyes, paresis, paralysis, permanent pain, hoarseness or difficulty swallowing, loss of bowel or bladder function, complications from anesthesia, blood clot, stroke, myocardial infarction, or even . Spasticity - he has tried baclofen and valium in the past with no improvement. Will trial zanaflex. Trial of valium Continue gabapentin Continue with bowel and bladder program. 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 Continue daily PT and OT Renal: Continue to monitor closely urine output, BUN and creatinine Endocrine: Continue to Monitor serial Acu checks and SSI as needed in detail ID antibiotics for possible urosepsis. Leukocytosis could be from recent steroids vs infection Continue Protonix for stress ulcer prophylaxis Continue Jelani roberson and SCD's for DVT prophylaxis
[2017-10-29] MEDS: HYDROmorphone PF Inj 2 MG/ML Vial IV.PUSH PRN ×4 (03:28→23:51)
[2017-10-29] MEDS: Levothyroxine 88 MCG Tablet PO SCH (06:38)
[2017-10-29] MEDS: Gabapentin 300 MG Capsule PO SCH ×3 (09:04→17:20)
[2017-10-29] MEDS: Calcium Carbonate 500 MG Tablet PO SCH (09:04)
[2017-10-29] MEDS: Senna/Docusate Sodium 8.6/50 MG Tablet PO SCH ×2 (09:04→22:07)
[2017-10-29] MEDS: Famotidine 20 MG Tablet PO SCH ×2 (09:07→22:06)
[2017-10-29] MEDS: Ascorbic Acid 500 MG Tablet PO SCH (09:08)
[2017-10-29] MEDS: Polyethylene Glycol 3350 17 GM Packet PO SCH (09:09)
[2017-10-29] MEDS: METHENAMINE HIPPURATE PO SCH ×2 (09:09→22:14)
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
--- NOTE | 2017-10-29 14:56 | P.PNNS ---
Subjective Interval history: 10/29: would like to proceed with surgical decompression tomorrow of herniated lumbar disc Physical Exam Vital signs: Vital Signs 10/28/17 15:44 10/28/17 19:28 10/29/17 01:22 Temperature 97.8 F 97.9 F 98.0 F Pulse Rate 60 83 61 Respiratory Rate 16 16 16 Blood Pressure 167/77 H 142/74 H 119/59 L Pulse Oximetry 99 100 96 10/29/17 03:28 10/29/17 04:15 10/29/17 08:38 Temperature 97.9 F 97.7 F Pulse Rate 75 75 Respiratory Rate 18 16 16 Blood Pressure 132/73 127/65 Pulse Oximetry 97 98 Intake & Output 10/28/17 10/29/17 10/29/17 18:59 06:59 18:59 Intake Total 1000 / 1000 Output Total 1400 / 1400 Balance 1000 / 1000 -1400 / -1400 Intake: IV 1000 / 1000 Output: Urine 1400 / 1400 Other: Date of Last Bowel Movement 10/28/17 10/28/17 # Bowel Movements 1 Narrative: General: Well nourished. No apparent distress, laying flat in bed. HEENT: Normocephalic, atraumatic. Normal conjunctiva. No nasal drainage. Neck: No masses, no JVD. Trachea midline. Neuro: Awake, alert and oriented to person, place, and time. Speech is clear and fluent. Cranial nerve examination: pupils equal, round, and reactive to light. Facial motor function are normal and symmetrical. Other cranial nerves are intact. Extremities: Mild increased tone with positive fasciculation of thigh. Atrophy of legs and right hand interosseous muscles. 4/5 right upper extremity. 5/5 left upper extremity. In the lower extremities, strength is 4/ 5 legs. Moderate thoracic kyphosis. Lungs: Nonlabored breathing on room air, no wheezing,rhonchi or crackles. No accessory muscle use. Heart: Regular rate and rhythm Abdomen: Soft, nontender. Positive bowel sounds Skin: Warm and dry, no cyanosis. Assessment and Plan - Plan Post Myelogram CT 10/28/17 00:00 CONCLUSION: Large right-sided protrusion at L4-L5 compromising the exiting right L4 traversing right L5 nerve root. There is mild spinal canal stenosis. Continue neuro checks. Large right-sided protrusion at L4-L5 compromising the exiting right L4 traversing right L5 nerve root. He has clinical evidence of right L4 and L5 radiculopathy. I discussed with her the alternative of continuing nonsurgical treatment with further pain management and physical therapy, analgesics, and antiimflammatories, versus consideration to a surgical decompression with a right L4-5 right hemilaminectomy, mesoofacetectomy, foraminotomy with microsurgical resection of the disk. . Using the patients radiologic studies, anatomical model(s) I have discussed the details of the surgical decompression including the [id number] procedure, its indications, alternatives, risks, and potential complications. Risks and potential complications include, but are not limited to, infection, blood loss, CSF leak, partial or complete loss of sight in one or both eyes, paresis, paralysis, permanent pain, hoarseness or difficulty swallowing, loss of bowel or bladder function, complications from anesthesia, blood clot, stroke, myocardial infarction, or even . NPO tonight at midnight consents to be placed in chart Dr. Clarke dudley patient, his questions answered
[2017-10-29] MEDS ORDERED: Chlorhexidine 4% Topical 120 APPLIC/120 ML Bottle TOPICAL ONE (15:00)
[2017-10-29] MEDS: traZODone 100 MG Tablet PO SCH (22:06)
[2017-10-30] MEDS ORDERED: Chlorhexidine Gluconate 2% 1 Pack (2 Cloths) TOPICAL SCH (04:00)
[2017-10-30] MEDS: Levothyroxine 88 MCG Tablet PO SCH (05:29)
[2017-10-30] MEDS: HYDROmorphone PF Inj 2 MG/ML Vial IV.PUSH PRN (05:29)
[2017-10-30] MEDS ORDERED: Hypromellose 0.3% Opth Gel 10 GM Bottle ONE (07:14)
[2017-10-30] MEDS ORDERED: Bupivacaine/Epinephrine 0.5% Inj 50 ML Vial ONE (07:20)
[2017-10-30] MEDS ORDERED: Thrombin Topical Soln 5,000 UNIT Vial TOPICAL ONE (07:20)
[2017-10-30] MEDS ORDERED: ceFAZolin 2 GM Premix Inj 2 GM/50 ML PIGGYBACK IV.SIG PRN (08:00)
[2017-10-30] MEDS: METHENAMINE HIPPURATE PO SCH ×2 (08:01→21:11)
[2017-10-30] MEDS: Ascorbic Acid 500 MG Tablet PO SCH (08:01)
[2017-10-30] MEDS: Famotidine 20 MG Tablet PO SCH ×2 (08:02→21:01)
[2017-10-30] MEDS: Gabapentin 300 MG Capsule PO SCH ×3 (08:02→17:30)
[2017-10-30] MEDS: Calcium Carbonate 500 MG Tablet PO SCH (08:02)
[2017-10-30] MEDS ORDERED: fentaNYL Citrate Inj 250 MCG/5 ML Ampul ONE (09:29)
[2017-10-30] MEDS ORDERED: Calcium Chloride Inj 1 GM/10 ML Syringe ONE (10:07)
[2017-10-30] MEDS ORDERED: Bupivacaine/Epinephrine PF Inj 0.5% 10 ML Vial ONE (11:03)
[2017-10-30] MEDS ORDERED: Bisacodyl 10 MG Supp RECTAL PRN (11:55)
[2017-10-30] MEDS ORDERED: Ketorolac Inj 30 MG/ML (IVP) Vial IV.PUSH ONE (12:00)
[2017-10-30] MEDS ORDERED: Lidocaine PF 1% Inj 5 ML Syringe INFILTRATN ONE (12:00)
[2017-10-30] MEDS ORDERED: Phenylephrine/NS 1000 MCG/10ML Syringe IV.PUSH ONE (12:00)
[2017-10-30] MEDS ORDERED: Glycopyrrolate Inj 1 MG/5 ML Syringe IV.PUSH ONE (12:00)
[2017-10-30] MEDS ORDERED: Neostigmine Inj 5 MG/5 ML Syringe IV.PUSH ONE (12:00)
--- NOTE | 2017-10-30 12:01 | P.OP ---
Date of procedure: 10/30/17 Procedure: Right L4-5 hemilaminectomy, mesiofacetectomy, foraminotomy, microsurgical resection of the disk Anesthesia: SILAS Surgeon: Hector Mir MD Layboy Tender: Jie Mckeon Operation and Findings: INDICATIONS FOR THE SURGICAL PROCEDURE Mr Street is a 67 year-old who presented with intractable back pain and pascale evidence of lower extremity radiculopathy. He had a large disk herniation and stenosis at L4-5. He failed maximum nonsurgical management. A surgical decompression was indicated as a last resort. The [id number] details of the procedure, indications, alternatives, risks and potential complications were fully discussed with the patient. The patient fully understood. All the questions were answered. No guarantees were given. The patient voiced requesting the procedure and provided informed consents. The patient was offered the alternative of delaying the procedure and continuing with nonsurgical management. DETAILS OF THE SURGICAL PROCEDURE After the induction of general anesthesia, endotracheal intubation was performed. A Al catheter, bilateral ZORA hose and sequential compression devices were placed and kept throughout the procedure. The patient was positioned prone on a Chidi table over a Ifeanyi frame. All pressure points were carefully padded with eggcrate mattress. The eyes were tapped shut after ointment was applied by the anesthesiologist to prevent corneal abrasion. A Amanda hugger was placed over the expossed lower body to maintain control of the core body temperature. The lower lumbar region was prepped and draped in the usual sterile fashion. A spinal needle was placed on the paraspinal muscle and a cross-table lateral x-ray performed with a C-arm. The skin incision was made over the spinous process of L4 and L5 along the midline. Small subcutaneous bleeders were controlled with a bipolar. The subcutaneous tissue and thoracolumbar fascia was opened with the Bovie and the spinous process of L4 and L5 were exposed. Then, using a Barbosa elevator and a Bovie a subperiosteal dissection was performed over the spinous process lamina and facet at L4 and L5 on the right side. A microdiscectomy self-retaining retractor was placed and an instrument was placed underneath the lamina of L4, and another cross-table lateral x-ray performed for radiological confirmation of the level. At this point in the procedure the operating microscope was draped in the usual sterile fashion and brought to the field. The rest of the surgical procedure was performed using microsurgical dissection technique with exception of the closure. Once the level was confirmed, a TPS drill brought to the field and a hemilaminectomy was performed at L4-L5 on the right side in standard fashion using the AM-8 drill bit, exposing the ligamentum flavum. The superior free border of the ligamentum flavum was from the dura with a ligament dissector and the ligamentum flavum was carefully removed with a 3 mm thin footplate Kerrison. The ligament Flavum and facets were significantly hypertrophic resulting on mass effect on the dural sac. Then, the medial aspect of the facet was drilled and undermined and the exiting L5 nerve root was identified and followed towards the foramen. A foraminotomy was performed with a 3 mm Kerrison. Then, the TPS drill was used to undermine the base of the spinous process, in order to carry out the decompression across the midline to the contralateral side. The ligamentum flavum across the midline was dissected from the dura with a ligament dissector and carefully removed with a 3 mm thin footplate Kerrison. An appropriate decompression of the dural sac and nerve root was achieved. Epidural veins located laterally to the dural sac were carefully coagulated with a bipolar and incised with microscissors. Gentle medial retraction of the dural sac allowed inspection of the disc space. The patient had a broad-based disc protusion which combined with the hypertrophic facets and ligamentun flavum was producing significant stenosis with mass effect on the dural sac and nerve root. Microdiscectomy was then deemed necessary. The annulus fibrosus was thoroughly coagulated with the bipolar and incised with a #10 blade. Then, a microdiscectomy was carried out in the standard fashion using straight and up-biting pituitary forceps. A reverse angle curet was used to push the extruded disc fragments into the disc space so they could be removed with pituitary forceps. Special attention was placed on the middle nerve root and axilla of the nerve root where disc fragments were found, which were carefully dissected and pushed into the disc space and removed with the Kerrison. A good decompression was achieved. The disc space was then irrigated with antibiotic solution. The incision was then thoroughly irrigated with antibiotic solution and hemostasis secured with the bipolar. A Valsalva maneuver failed to show any cerebrospinal fluid leak or bleeding. The incision was irrigated and closed in layers. 0 Vicryl with interrupted sutures was used to close the thoracolumbar fascia and superficial fascia. The subcutaneous tissue was closed with 3-0 Vicryl. The skin was closed with 4-0 running subcuticular Vicryl. Dermabond was applied to the skin. At the end of the procedure, the sponge, needle and instrument counts were all correct. Estimated blood loss was less than 60 cc. No blood transfusion was given. No intraoperative complications occurred. The patient received prophylactic antibiotics. The patient was then extubated and transferred to the recovery room in stable condition.
[2017-10-30] MEDS: Polyethylene Glycol 3350 17 GM Packet PO SCH ×2 (13:11→21:11)
[2017-10-30] MEDS ORDERED: *morphine SULFATE 4 MG/ML PERIprocedure ONLY ONE (13:24)
--- NOTE | 2017-10-30 13:55 | XR ---
EXAM DATE: 10/30/2017 1:18 PM EDT AGE/SEX: 67 years / Male INDICATIONS: Herniated disk, laminectomy. CLINICAL DATA: This is the patient's initial encounter. Patient reports that signs and symptoms have been present for 1 day and indicates a pain score of 0/10. MEDICAL/SURGICAL HISTORY: . Scoliosis . [place] [facility] [place] 10/28/2017. . FINDINGS: Single spot fluoroscopic lateral view of the lumbar spine demonstrates localization probe projecting at the posterior superior aspect of the L5 vertebral body. CONCLUSION: Localization as above. Electronically signed by: Bryon Hugo MD 10/30/2017 1:53 PM EDT
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
--- NOTE | 2017-10-30 17:06 | ECG ---
Date Performed: 10/30/2017 Time Performed: 06:26:32 PTAGE: 67 years EKG: Possible atrial flutter. Abnormal ECG NO PREVIOUS TRACING Artifact DOCTOR: Olga Johnson Interpretating Date/Time 10/30/2017 17:03:56
[2017-10-30] MEDS: Senna/Docusate Sodium 8.6/50 MG Tablet PO SCH (21:00)
[2017-10-30] MEDS: traZODone 100 MG Tablet PO SCH (21:00)
[2017-10-31] MEDS: Levothyroxine 88 MCG Tablet PO SCH (06:15)
[2017-10-31 07:46] LABS: Hematocrit 30.9 % (39.0-51.0); Hemoglobin 10.5 gm/dL (13.0-17.0); Mean Corpuscular HGB Conc 34.1 % (32.0-36.0); Mean Corpuscular Hemoglobin 32.5 pg (27.0-34.0); Mean Corpuscular Volume 95.4 fL (80.0-100.0); Mean Platelet Volume 8.7 fL (7.0-11.0); Platelet Count 260 th/mm3 (150-450); Red Blood Count 3.24 mil/mm3 (4.50-5.90); Red Cell Distribution Width 13.1 % (11.6-17.2); White Blood Count 12.1 th/mm3 (4.0-11.0)
[2017-10-31 08:13] LABS: Anion Gap 6 meq/L (5-15); Blood Urea Nitrogen 13 mg/dL (7-18); Calcium 8.5 mg/dL (8.5-10.1); Carbon Dioxide 27.6 meq/L (21.0-32.0); Chloride 101 meq/L (98-107); Glomerular Filtration Rate Greater Than 89 mL/min (>89); Potassium 4.2 meq/L (3.5-5.1); Sodium 135 meq/L (136-145)
[2017-10-31 08:15] LABS: Glucose,Random 115 mg/dL (74-106)
[2017-10-31] MEDS: METHENAMINE HIPPURATE PO SCH ×2 (08:28→21:36)
[2017-10-31] MEDS: Calcium Carbonate 500 MG Tablet PO SCH (08:29)
[2017-10-31] MEDS: Senna/Docusate Sodium 8.6/50 MG Tablet PO SCH ×2 (08:29→21:40)
[2017-10-31] MEDS: Gabapentin 300 MG Capsule PO SCH ×3 (08:29→17:31)
[2017-10-31] MEDS: Ascorbic Acid 500 MG Tablet PO SCH (08:29)
[2017-10-31] MEDS: Famotidine 20 MG Tablet PO SCH ×2 (08:29→21:36)
[2017-10-31] MEDS: Polyethylene Glycol 3350 17 GM Packet PO SCH ×2 (08:30→21:41)
--- NOTE | 2017-10-31 13:05 | P.PNNS ---
Subjective Interval history: 10/31: POD 1 s/p right L5-4 microdiscectomy. reports to be feeling much better, right leg pain and spasms improved. very happy so far. Physical Exam Vital signs: Vital Signs 10/30/17 13:15 10/30/17 13:30 10/30/17 16:00 Temperature 97.4 F L Pulse Rate 68 66 74 Respiratory Rate 14 12 16 Blood Pressure 152/72 H 140/70 124/62 Pulse Oximetry 96 10/30/17 17:05 10/30/17 20:00 10/31/17 00:00 Temperature 97.2 F L 97.5 F L Pulse Rate 76 68 Respiratory Rate 18 20 20 Blood Pressure 135/67 109/55 L Pulse Oximetry 96 97 10/31/17 04:00 10/31/17 08:00 10/31/17 08:36 Temperature 97.2 F L 97.5 F L Pulse Rate 73 77 Respiratory Rate 20 16 18 Blood Pressure 122/59 L 162/76 H Pulse Oximetry 96 98 10/31/17 12:00 Temperature 97.7 F Pulse Rate 80 Respiratory Rate 16 Blood Pressure 169/77 H Pulse Oximetry 100 Intake & Output 10/30/17 10/31/17 10/31/17 18:59 06:59 18:59 Intake Total 2280 / 2280 900 / 900 Output Total 60 / 60 Balance 2220 / 2220 900 / 900 Weight 90.7 kg Intake: Oral 480 / 480 900 / 900 Anesthesia Amount 1800 / 1800 Output: Estimated Blood Loss 60 / 60 Other: # Voids 2 Date of Last Bowel Movement 10/28/17 Narrative: Awake, comfortable in no pain eating breakfast smiling and pleasant - Urinary Catheter Management Condom Cath placed during this visit: no Reason for continuing: Not indwelling catheter Assessment and Plan - Plan s/p Right L4-5 hemilaminectomy, mesiofacetectomy, foraminotomy, microsurgical resection of the disk 10/31/17 Plan: clear to dc to rehab from [facility] standpoint, dc planning to [facility] corset brace when out of bed dw pt activity restrictions can keep Optifoam dressing on for upto 1 week post-op, can shower now, keep wound clean and dry after Optifoam has been removed may transition to [place] changed daily, monitor daily for signs of infection, avoid laying on wound for long periods of time
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
[2017-10-31] MEDS: traZODone 100 MG Tablet PO SCH (21:36)
[2017-11-01 06:06] LABS: Baso # (Auto) 0.1 th/mm3 (0.0-0.2); Baso % (Auto) 0.8 % (0.0-2.0); Eos # (Auto) 0.1 th/mm3 (0.0-0.4); Eos % (Auto) 1.4 % (0.0-4.0); Hematocrit 27.8 % (39.0-51.0); Hemoglobin 9.7 gm/dL (13.0-17.0); Lymph # (Auto) 1.9 th/mm3 (1.0-4.8); Lymph % (Auto) 27.3 % (9.0-44.0); Mean Corpuscular HGB Conc 34.7 % (32.0-36.0); Mean Corpuscular Hemoglobin 32.9 pg (27.0-34.0); Mean Platelet Volume 8.6 fL (7.0-11.0); Mono # (Auto) 0.9 th/mm3 (0.0-0.9); Mono % (Auto) 13.2 % (0.0-8.0); Neut % (Auto) 57.3 % (16.0-70.0); Platelet Count 252 th/mm3 (150-450); Red Blood Count 2.93 mil/mm3 (4.50-5.90); White Blood Count 7.1 th/mm3 (4.0-11.0)
[2017-11-01] MEDS: Levothyroxine 88 MCG Tablet PO SCH (06:17)
[2017-11-01] MEDS: Ascorbic Acid 500 MG Tablet PO SCH (09:26)
[2017-11-01] MEDS: Senna/Docusate Sodium 8.6/50 MG Tablet PO SCH (09:27)
[2017-11-01] MEDS: Gabapentin 300 MG Capsule PO SCH ×2 (09:27→13:30)
[2017-11-01] MEDS: METHENAMINE HIPPURATE PO SCH (09:27)
[2017-11-01] MEDS: Calcium Carbonate 500 MG Tablet PO SCH (09:27)
[2017-11-01] MEDS: Famotidine 20 MG Tablet PO SCH (09:27)
[2017-11-01] MEDS: Polyethylene Glycol 3350 17 GM Packet PO SCH (09:28)
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
== END 2017-11-01 15:45 ==
LOC: NEPC 14:13 → INTOOBSV 10-22 00:46 → NEDA 10-22 00:46 → NEPGCP 10-22 02:07 → N07 10-29 12:39
PROVIDERS: ADMIT Hospitalist; ATTEND Hospitalist